=== PATIENT | female | born 1975 | race Caucasian/White ===

== ENCOUNTER → 2016-11-29 | Outpatient (CLI) | payer OTHER ==
--- NOTE | 2016-11-29 12:33 | DI ---
US PELVIC-TRANSVAGINAL, US PELVIC COMPLETE (NON OB),11/29/2016 7:11 AM: Clinical History: Polycystic ovarian syndrome. Previous Exam: None at this facility. Findings: Multiple transabdominal and endovaginal grayscale and color Doppler sonographic images are obtained t hrough the pelvis, and demonstrate a uterus measuring 7.9 x 3.8 x 4.9 cm. The right ovary measures 4.2 x 2.6 x 3.4 cm. The left ovary measures 3.8 x 2.5 x 2.3 cm. There is a simple cyst noted within the right ovary which is within normal limits for a premenopausal female. There is normal venous and arterial ovarian Doppler flow. A few nabothian cysts were noted. Impression: No evidence of polycystic ovarian syndrome.
== END ==
LOC: US 07:05
PROVIDERS: ATTEND Obstetrics & Gynecology
DX: N97.0 Female infertility associated with anovulation (principal)
CPT/HCPCS: 36415; 76830; 76856; 82627; 82951; 83498; 84403

== ENCOUNTER 2017-02-19 06:01 | Emergency (ER) | payer OTHER ==
[2017-02-19] MEDS ORDERED: KETOROLAC 15 MG/1 ML VIAL IVP ONE (06:14)
[2017-02-19] MEDS ORDERED: NORMAL SALINE 10 ML SYRINGE FLUSH IVP PRN (06:14)
[2017-02-19] MEDS ORDERED: ASPIRIN 81 MG (BABY) CHEWABLE TABLET PO ONE (06:14)
--- NOTE | 2017-02-19 06:18 | EKG ---
[address] [address] Measurements Intervals [place] Rate: 70 P: 37 [place]: 153 QRS: -16 QRSD: 99 T: -1 QT: 373 QTc: 394 Interpretive Statements SINUS RHYTHM WITH SINUS ARRHYTHMIA No previous ECG available for comparison Electronically Signed On 02-22-17 16:23:19 MDT by Billy Kay [email or web address]
[2017-02-19 06:21] VITALS: RESP 16; TEMP 96.2
--- NOTE | 2017-02-19 06:25 | PDOC ---
Chest Pain HPI - General Chief Complaint: Chest Pain Stated Complaint: CHEST PAIN Date Seen by Provider: 02/19/17 Time Seen by Provider: 06:05 Source: Patient Exam Limitations: POSITIVE: No limitations Treatment Prior to Arrival: REPORTS: None Nurse's Notes Reviewed & Considered: Yes - History of Present Illness Initial Comments: The patient is a 41-year-old female who presents to the emergency department with left upper chest pain. She states that she had onset of an achy pain in her left upper chest on of this week. This is progressively intensified. The pain seems worse with any movement and with pressure in the area on her chest. At times she also reports that it is difficult to take a breath secondary to the pain. She denies any recent illness or injury. She thought at first that she just slept wrong. She denies any pain or swelling in her legs. She reports a history of polycystic ovary disease and migraines. She is otherwise healthy. She is currently undergoing infertility treatment. She denies history of hypertension, hyperlipidemia, diabetes or smoking. She does have family history of heart problems. She does not take any form of estrogen and denies history of blood clots. - Patient Home Medications Home Medications: Home Medications Metformin HCl [Metformin Hcl Er] 2 tab PO BID #120 tab 07/26/16 Acetaminophen-Cod #3 Tablet [Tylenol with Codeine #3 Tablet] 1 tab PO PRN Ibuprofen [Motrin] 800 mg PO PRN 02/19/17 Naproxen [Naprosyn] 500 mg PO Q12H PRN #20 tab 02/19/17 oxyCODONE/APAP 5/325 Tab [Percocet 5/325 Tab] 1 - 2 tab PO Q6H PRN #15 tab - Patient Allergies Allergies/Adverse Reactions: Allergies Allergy/AdvReac Type Severity Reaction Status Date / Time No Known Allergies Allergy Verified 02/19/17 06:07 Past Medical History - heen HEENT History: Denies History Cardiovascular History: Denies History Respiratory History: Denies History Gastrointestinal History: Denies History Genitourinary History: Denies History Endocrine History: Other (please comment) Additional Endocrine History: PCOS Musculoskeletal History: Denies History Prosthesis or Implant: No Neurological History: Denies History Blood Disorders: Denies History Psychiatric History: Denies History History of Sexually Transmitted Diseases: No Cancer History: Denies History History of MDRO: No History of Other Communicable Diseases: No Alcohol Use: None Substance Use Type: None Previous Surgical History: No Anesthesia Reactions: No Malignant Hyperthermia: No Significant Family History: No pertinent family hx Additional Family History: UNKNOWN Past Medical History Reviewed: Reviewed - No Changes ROS - Limitations ROS Limitations: No Limitations Constitution: DENIES: Chills, Fever Cardiovascular: REPORTS: Chest Pain. DENIES: Heart Racing, Heart Palpitations, Blood Pressure Problem, Edema Respiratory: REPORTS: Hurts To Breathe, Shortness Of Breath (Only because of the pain). DENIES: Cough Non Productive, Cough Productive Neurological: REPORTS: Denies Neuro Symptoms Gastrointestinal: REPORTS: Denies GI Symptoms Musculoskeletal: REPORTS: Denies MS Symptoms Eyes: REPORTS: Denies Symptoms ENT: REPORTS: Denies Symptoms Skin: DENIES: Rash Chest Pain PE - General Appearance General Appearance: REPORTS: Alert, Cooperative, No Acute Distress - HEENT HEENT: POSITIVE: Head Inspection Nml, Eyes Inspection Nml, Ears Inspection Nml, Pharynx Inspect. Nml - Respiratory Respiratory: REPORTS: No Respiratory Distress, Breath Sounds Normal, Other (She does have tenderness in the left anterior upper chest wall, there is no visible rash or swelling in this region) - Cardiovascular Cardiovascular: REPORTS: Regular Rate and Rhythm, Heart Sounds Normal Peripheral Pulses: Radial (R): 2+, Radial (L): 2+ - Abdomen Abdomen: Soft: (All Quadrants), Denies Tenderness: (All Quadrants), No Distention: (All Quadrants) - Skin Skin: REPORTS: Intact, No Rash - Extremities Extremity: Normal ROM: (All Extremities), Normal Inspection: (All Extremities) - Neurological / Psychological Neurological: POSITIVE: Oriented X3, Motor Normal, Sensation Normal Chest Pain Progress - Results Reviewed by me Xrays/CTs/US Reviewed by me: Yes Radiology Findings: Chest x-ray shows normal heart size and normal lung kovacs, no obvious rib fracture Lab Results Reviewed: Yes Lab Results:: Laboratory Results 02/19/17 Range/Units 06:26 WBC 8.16 (4.8-10.8) 10^3/uL RBC 4.74 (4.20-5.40) 10^6/uL Hgb 13.6 (12.0-16.0) g/dL Hct 41.2 (37.0-47.0) % MCV 86.9 (81-99) FL MCH 28.7 (27-31) PG MCHC 33.0 (33-37) g/dL RDW Std Deviation 43.9 (39-50) fL RDW Coeff of Mariama 14.0 (11.5-14.5) % Plt Count 275 (140-350) 10*3/uL MPV 10.8 (7.4-12.2) FL Immature Gran % (Auto) 0.2 (0-5) % Neut % (Auto) 71.2 (50-80) % Lymph % (Auto) 19.4 (10-50) % [place] % (Auto) 6.6 (5-15) % Eos % (Auto) 2.2 (0-8) % Baso % (Auto) 0.4 (0-1) % Immature Gran # (Auto) 0.02 10*3/UL Neut # (Auto) 5.81 10*3/UL Lymph # (Auto) 1.58 10*3/uL [place] # (Auto) 0.54 (0.3-0.8) 10*3/UL Eos # (Auto) 0.18 10*3/UL Baso # (Auto) 0.03 10*3/UL WBC Morphology Comment Normal morphology (NORM) Plt Morphology Comment Normal morphology (NORM) RBC Morph Comment Normal morphology (NORM) D-Dimer 0.28 (0.00-0.59) mg/L Sodium 142 (135-145) meq/L Potassium 3.9 (3.8-5.2) meq/L Chloride 108 (98-112) meq/L Carbon Dioxide 21 L (23-33) meq/L Anion Gap 13 (5-20) BUN 16 (7-22) mg/dL Creatinine 0.7 (0.50-1.20) mg/dL Estimated GFR > 60 (>60 ml/min/1.73m(2)) BUN/Creatinine Ratio 22.85 H (6-20) Glucose 86 (78-110) mg/dL Calculated Osmolality 293.0 H (267-292) mOsm/kg Calcium 8.6 L (8.7-10.7) mg/dL Magnesium 2.1 (1.6-2.4) mg/dL Total Bilirubin 1.3 H (0.3-1.2) mg/dL AST 26 (8-39) IU/L ALT 37 (9-52) IU/L Alkaline Phosphatase 61 (38-126) IU/L CK-MB (CK-2) 0.42 (0.00-5.00) NG/ML Troponin I < 0.012 (< 0.040) ng/mL C-Reactive Protein < 0.5 (0.0-0.9) mg/dL Total Protein 6.8 (6.1-8.0) g/dL Albumin 3.8 (3.5-4.8) g/dL Globulin 3.0 (2.50-4.10) g/dL Albumin/Globulin Ratio 1.20 L (1.3-2.0) mg/g Serum HCG, Qual Negative EKG Interpreted/Reviewed By Me:: Yes EKG Interpretation:: POSITIVE: Normal Sinus Rhythm, Normal Rate, Normal Intervals, Normal [place], Normal QRS, Normal ST/T - Patient's Progress MDM / ED Course: The patient's initial EKG shows normal sinus rhythm with no acute ST segment or T-wave changes. She did receive aspirin per chest pain protocol as well as Toradol 15 mg IV as clinically on presentation her pain seem most likely to be musculoskeletal. She had only very minimal pain relief. Her lab work is all essentially unremarkable and her chest x-ray is normal. She was given Percocet 5/325 2 by mouth for pain. Results were discussed. Her pain is most likely is musculoskeletal in origin. She will be discharged home and was prescribed naproxen 500 mg twice a day as needed for pain as well as Percocet as needed for pain. She is advised return to the emergency room if she develops increased pain, any worsening or change in symptoms. She is advised follow-up with her primary care provider in 3-5 days. - Consult Counseled: POSITIVE: Patient, RE: Lab Results, RE: Radiology Results, RE: DX, RE : Need for F/U Patient Care Time - Estimated PCT Patient Care Time (In Minutes): 25 Vital Signs - Recent Vital Signs Vital Signs: Vital Signs (Last 8 hours) Temp Pulse Resp BP Pulse Ox 02/19/17 06:12 96.2 F L 71 16 142/99 97 - VS Reviewed Vital Signs Reviewed: Yes Discharge Clinical Impression: Chest wall pain Discharge Disposition: Discharged to Home Condition: Good Prescriptions / Orders: Naproxen [Naprosyn] 500 mg PO Q12H PRN #20 tab PRN Reason: Pain oxyCODONE/APAP 5/325 Tab [Percocet 5/325 Tab] 1 - 2 tab PO Q6H PRN #15 tab PRN Reason: Pain Patient Instructions Given at Discharge: Chest Wall Pain (ED) Additional Instructions: The pain you are experiencing in the left upper chest is likely musculoskeletal pain from the chest wall. The EKG on your heart was normal. Your blood work was all normal with no evidence of blood clot, heart attack or infection. The chest x-ray also looked normal. Recommend naproxen 500 mg twice a day with food as an anti-inflammatory and for pain. In addition your been prescribed Percocet 5/325 which she can take one or 2 every 6 hours as needed for pain. Return to the emergency room if increased pain, any worsening or change in symptoms. Recommend follow-up with primary care in 3-5 days. Follow Up With: ARUN HOFFMAN [Primary Care Provider] -
[2017-02-19] MEDS ORDERED: Sodium Chloride 0.9% 1,000 ML PRIMARY IV ONE (06:26)
[2017-02-19 06:29] LABS: BASOPHILS # (AUTO) 0.03 10*3/UL; BASOPHILS % (AUTO) 0.4 % (0-1); EOSINOPHILS # (AUTO) 0.18 10*3/UL; EOSINOPHILS % (AUTO) 2.2 % (0-8); HEMATOCRIT 41.2 % (37.0-47.0); HEMOGLOBIN 13.6 g/dL (12.0-16.0); LYMPHOCYTES # (AUTO) 1.58 10*3/uL; MEAN CORPUSCULAR HEMOGLOBIN 28.7 PG (27-31); MEAN CORPUSCULAR VOLUME 86.9 FL (81-99); MEAN PLATELET VOLUME 10.8 FL (7.4-12.2); MONOCYTES # (AUTO) 0.54 10*3/UL (0.3-0.8); MONOCYTES % (AUTO) 6.6 % (5-15); NEUTROPHILS # (AUTO) 5.81 10*3/UL; NEUTROPHILS % (AUTO) 71.2 % (50-80); PLATELET MORPHOLOGY COMMENT NORMAL MORPHOLOGY (NORM); RBC MORPHOLOGY COMMENT NORMAL MORPHOLOGY (NORM); RED BLOOD COUNT 4.74 10^6/uL (4.20-5.40); WBC MORPHOLOGY COMMENT NORMAL MORPHOLOGY (NORM)
[2017-02-19 06:40] LABS: BLOOD UREA NITROGEN 16 mg/dL (7-22); BUN/CREATININE RATIO 22.85 (6-20); CALCIUM 8.6 mg/dL (8.7-10.7); EST GLOMERULAR FILTRATION > 60 (>60 ml/min/1.73m(2)); MAGNESIUM 2.1 mg/dL (1.6-2.4); SERUM ALBUMIN 3.8 g/dL (3.5-4.8)
[2017-02-19 06:56] LABS: CREATINE KINASE MB 0.42 NG/ML (0.00-5.00); TROPONIN I < 0.012 ng/mL (< 0.040)
[2017-02-19] MEDS ORDERED: oxyCODONE-ACETAMINOPHEN 5-325 TAB PO ONE (07:19)
--- NOTE | 2017-02-19 12:18 | DI ---
AP CHEST X-RAY, 02/19/2017 5:14 AM : Clinical History: Chest pain. Previous Exam: 12/30/2014. There is no acute soft tissue or bony abnormality. Heart size is normal. Lungs are clear. Mediastinal structures are normal. There are no pulmonary nodules. Reading: Normal chest x-ray. There has been no interval change.
[2017-02-19] MEDS ORDERED: Sodium Chloride 0.9% 1,000 ML ONE (14:09)
== END 2017-02-19 07:32 | disposition home or self-care (01) ==
LOC: ER 06:01
DX: R07.89 Other chest pain (principal); R06.00 Dyspnea, unspecified; E28.2 Polycystic ovarian syndrome
CPT/HCPCS: 36415; 71010; 80053; 82553; 83735; 84484; 84703; 85025; 85379; 86140; 93005; 93010; 96374; 99284; J1885; J7030

== ENCOUNTER 2018-07-31 03:01 | Inpatient (IN) ==
[2018-07-31] MEDS ORDERED: diphenhydrAMINE 50 MG/1 ML VIAL IVP PRN ×2 (03:37→23:50)
[2018-07-31] MEDS ORDERED: LIDOCAINE HCL 2 % 10 ML JELLY URO-JECT TOPICAL PRN ×2 (03:37→23:50)
[2018-07-31] MEDS ORDERED: Metoclopramide Inj 10 MG/2 ML VIAL IV PRN (03:37)
[2018-07-31] MEDS ORDERED: OXYTOCIN 10 UNIT/1 ML IM PRN (03:37)
[2018-07-31] MEDS ORDERED: Carboprost Inj 250 MCG/ML AMP IM PRN (03:37)
[2018-07-31] MEDS ORDERED: CITRIC ACID/SODIUM CITRATE 30 ML CUP PO PRN (03:37)
[2018-07-31] MEDS ORDERED: Lidocaine 1% 10 MG/ML - 20 ML VIAL SUBCUT PRN (03:37)
[2018-07-31] MEDS ORDERED: FAMOTIDINE 20 MG/2 ML VIAL IVP PRN ×2 (03:37)
[2018-07-31] MEDS ORDERED: MISOPROSTOL 200 MCG TABLET RECTAL PRN (03:37)
[2018-07-31] MEDS ORDERED: CefOXitin Inj 2 GM in Sodium Chloride 0.9% 100 ML IV PRN (03:37)
[2018-07-31] MEDS ORDERED: NALOXONE 0.4 MG/1 ML VIAL IVP PRN (03:37)
[2018-07-31] MEDS ORDERED: LIDOCAINE W/ SODIUM BICARB 0.5 ML SYR SUBD PRN ×2 (03:37→22:19)
[2018-07-31] MEDS ORDERED: CALCIUM CARBONATE 500 MG (TUMS) CHEWABLE TABLET PO PRN ×2 (03:37→23:50)
[2018-07-31] MEDS ORDERED: Nalbuphine Inj 20 MG/ML Ampule IVP PRN ×2 (03:37→23:50)
[2018-07-31] MEDS ORDERED: METHYLERGONOVINE MALEATE 0.2 MG/1 ML VIAL IM PRN (03:37)
[2018-07-31] MEDS ORDERED: Phenylephrine Inj 50 MCG in Normal Saline Flush 0.5 ML IVP PRN (03:37)
[2018-07-31] MEDS ORDERED: Zolpidem Tab 5 MG TAB PO PRN (03:37)
[2018-07-31] MEDS ORDERED: TERBUTALINE SULFATE 1 MG/1 ML SDV SUBCUT PRN (03:37)
[2018-07-31] MEDS ORDERED: ONDANSETRON 4 MG/2 ML VIAL IVP PRN ×3 (03:37→23:50)
[2018-07-31] MEDS ORDERED: Naloxone Inj 0.01 MG in Normal Saline Flush 1 ML IVP PRN (03:37)
[2018-07-31] MEDS ORDERED: Misoprostol Tab 100 MCG TAB VAGINAL PRN (03:37)
[2018-07-31] MEDS ORDERED: Oxytocin 20 Units + LR 20 UNIT/1,000 ML BAG IV SCH ×3 (03:45→23:50)
[2018-07-31] MEDS: BUTORPHANOL TARTRATE 2 MG/1 ML VIAL IVP PRN ×3 (04:31→04:50)
[2018-07-31 04:41] LABS: Hematocrit [HCT] 40.6 % (37.0-47.0); Hemoglobin [HGB] 13.6 g/dL (12.0-16.0); MEAN CORPUSCULAR HGB CONC 33.5 g/dL (33-37); MEAN CORPUSCULAR VOLUME 86.6 FL (81-99); MEAN PLATELET VOLUME 12.9 FL (7.4-12.2); RED BLOOD COUNT 4.69 10^6/uL (4.20-5.40)
[2018-07-31 05:03] LABS: BLOOD UREA NITROGEN 9 mg/dL (7-22); SERUM ALBUMIN 3.3 g/dL (3.5-4.8); Uric Acid 5.5 mg/dl (2.5-7.0)
[2018-07-31] MEDS: Lactated Ringers-OB Dept 1,000 ML PRIMARY IV SCH ×4 (05:03→14:39)
[2018-07-31] MEDS ORDERED: BUPivacaine Inj 0.25% PF - 10ml vial ONE ×4 (05:46→12:43)
[2018-07-31] MEDS ORDERED: LIDOCAINE W/ SODIUM BICARB 0.5 ML SYR ONE (05:46)
[2018-07-31] MEDS ORDERED: LIDOCAINE MPF 2% - 5 ML (20 MG/1 ML) ONE ×3 (05:47→12:43)
[2018-07-31] MEDS ORDERED: Fent/Bupiv 2mcg/0.0625% Epid 250 ML ONE (06:15)
--- NOTE | 2018-07-31 07:27 | CRNA.PROCE ---
Central Neuraxis Block Placemt - - Safety Measures: Time Out Taken, Site Verified - - Type of Block: Epidural Reason for Block: Analgesia Moniters Used During Block: SPO2, NIBP Positioning: Sitting Skin Prep Used: ChloroPrep Draped: Yes Skin Infiltration - Enter Amount Used in Comment Field: 1% Xylocaine (mL): Yes ( wheal) Introducer User: 18 Gauge Hustead Local Anesthetic - Enter Amount Used in Comment Field: 5.0 % Xylocaine with Dextrose (ml): Yes (5ml test dose neg) Number of Centimeters Catheter Threaded: 4 Bioclusive Dressing Applied: Yes Anesthesia Time - Other Weight: 132.449 kg Height: 5 ft 7 in Body Mass Index (BMI): 45.7
--- NOTE | 2018-07-31 07:28 | CRNA.PROGR ---
Anesthesia Time - Procedure/Recovery Time Start Date: 07/31/18 End Date: 07/31/18 Anesthesia : Time In: 06:10 Anesthesia : Time Out: 21:00 Anesthesia : Total Time: 890 - Total Anesthesia Time Total Anesthesia Time (minutes): 890 - Other Weight: 132.449 kg Height: 5 ft 7 in Body Mass Index (BMI): 45.7 Physical Status: P2 Anesthesia Type: Epidural Obstetrics: Planned vaginal delivery w/ neuraxial labor anesthesia/analog
[2018-07-31] MEDS ORDERED: fentaNYL 2 MCG/BUPIVACAINE 0.0625%/NS 0.9% 250 ML BAG EPIDURAL SCH (07:30)
[2018-07-31] MEDS: ACETAMINOPHEN 500 MG TABLET PO PRN ×2 (07:57→17:35)
--- NOTE | 2018-07-31 08:02 | OB.PROGRES ---
Date of Service: 07/31/18 Interval History: The patient is a 42-year-old at 37 weeks gestation today who presented this morning by ambulance after noticing some pain and discomfort last evening and then around midnight figuring out that most likely her pain was related to contractions. At that time, her contractions were every 10 minutes and then her pain increased. No bleeding. No gush of fluid. Positive movement. The patient was going to come to labor and delivery but noted that they had no gas in their vehicle so they called the ambulance to be brought to labor and delivery. In labor and delivery, the patient's blood pressures were elevated in the 140s to 150/90's with the highest blood pressure of 151/97. Patient also developed a headache this morning but has a history of migraine headaches. The patient states that her headache is similar to her migraine headaches. The patient had an dural placed secondary to the pain that she was having. This helped her pain initially and the patient was able to sleep but now the patient is having some more pain so anesthesia will about a weight her. The patient has essentially had an uncomplicated , although followed closely, until the last week when she developed high her blood pressures in the 140s over 90s occasionally and a 24-hour urine for total protein was elevated. The patient does have morbid obesity with a BMI greater than 50. Therefore, the patient was diagnosed with preeclampsia without signs or symptoms of severe preeclampsia. The patient was scheduled for an induction of labor with cervical ripening for this morning. The patient has had growth scans and antepartum testing. Last growth scan was 2861 g or 69th percentile with the placenta fundal and to the right side on 07/20/2018. Last MIGUEL was normal at 13. Antepartum testing has been reactive. Glucola's have been normal. Group B strep was negative. The patient did have bleeding in the first trimester. Please see below for history. Patient has polycystic ovarian syndrome and was prescribed Clomid for ovulation induction after discussing the risks, benefits, alternatives and indication of a high-risk with advanced maternal age and morbid obesity. The patient is a 42-year-old LMP 11/05/2017 who has a history of primary infertility and has 4 adopted children who desired conception. Patient was treated with Clomid with the Clomid challenge test and conceived. An ultrasound on 02 January showed that she was 6-6/7 weeks so today she would be 8 and one sevenths weeks. The patient had some bleeding a week plus ago and went to the emergency room and there was cardiac activity. The bleeding stopped within the patient had dark blood per vagina last night. No cramping. Occasional nausea. No emesis. No fever or chills. No abdominal pain. Past medical history significant for polycystic ovarian syndrome and primary infertility, migraine headaches. Surgical history noncontributory Patient has no known drug allergies No tobacco, rare alcohol, no drugs. No alcohol since she has conceived. The patient has been taking multivitamin daily. Other current medications are micronized progesterone 200 mg by mouth twice a day and a baby aspirin-81 mg-by mouth daily Menarche age 11, no STI history, remote history of abnormal Pap with colposcopies but no leak or cold knife cone. Last Pap smear was February 2016 and was negative with negative HPV. Family history of ovarian cyst and fibroid uterus and her mother and sister. No ovarian cancer, no endometrial cancer, no colon cancer, no lung cancer hx The patient is a 42-year-old last menstrual period 09/30/2017 using nothing for contraception who presents today for primary infertility. Patient saw me in October 2016 but then has not seen me since that time secondary to a lot of life issues in her family that took precedence. The patient has 4 adopted children. She is but currently with another gentleman and they desire to conceive. Her first had azoospermia and therefore the patient never worried about conception. The patient has been having unprotected intercourse for 2 years and has not conceived. The patient states that her menses have continued to be more regular. Her LMP was 30 September and she suspects that her menses will occur any day now. She usually has her menses once a month. The patient was taking metformin 1000 mg by mouth twice a day but ran out of this medication in August 2017 and has not gotten it refill. The patient has a history of polycystic ovarian syndrome with hirsutism and therefore has had possible glucose intolerance and therefore was placed on the metformin. The patient has a history of menarche age 11 with regular cycles initially but then age 16-19 her cycles became irregular. The patient has also had a history of being overweight and obesity. The patient lost about 60 pounds 2-3 years ago and her cycles again became more regular. Over the past year the patient has gained 30 pounds secondary to the significant life psychosocial issues that have occurred but the patient is interested in conceiving but also losing weight currently. The patient was using LH surge kits until June 2017 occasionally and did have LH surges according to the patient. The patient does have a history of a normal FSH of 5.7 last year. The patient does have a history of abnormal Pap smears in the with colposcopies and a few biopsies. No surgeries to her cervix. Patient's Pap smear was last completed in February 2016 and it was normal with negative HPV. Patient was also negative for chlamydia and gonorrhea at that time. The patient did have a normal TSH and FSH and prolactin in September 2016. FSH was 5.7. The patient was taking metformin at that time with thousand milligrams by mouth twice a day and her glucose was 80. Creatinine 0.7 and AST and ALT were normal. The patient's H&H was 14 and 42. Platelets normal at 279,000. The patient does have hirsutism and she has to shave her chin no history of significant acne. The patient's significant other has fathered a child and has a 2-year-old with another woman in the area. Past medical history significant for polycystic ovarian syndrome, migraine headaches. Now she only gets headache a couple times a year. Past surgical history noncontributory No known drug allergies No tobacco, rare alcohol, no drugs. Menarche age 11, no STI history positive for remote history of abnormal Pap with colposcopies but no LEEP or cold knife cone. Family history of ovarian cysts and fibroid uterus and her mother and sister. No ovarian cancer history. No endometrial cancer, colon cancer, lung cancer. The patient does take a multivitamin daily. Objective - Cervical Exam Cervical Exam: per nurse exam. 4 to 5/90/-2 cephalic [place]: Contractions every 3 minutes Heart Rate Interpretation Category: Category II (Occasional variable decelerations) - Labs CBC and BMP: 07/31/18 04:05 07/31/18 04:05 - Vital Signs Last Taken Vital Signs: Vital Signs - Last Taken Temperature 98.2 F 07/31/18 03:43 Pulse Rate 93 07/31/18 07:00 Respiratory Rate 20 07/31/18 07:00 Blood Pressure 127/63 07/31/18 07:00 Pulse Ox 96 07/31/18 07:07 - Additional Details Additional Details: Nontoxic-appearing Abdomen is soft, orbitally obese, appropriately tender with contractions even though patient has an epidural 1+ reflexes bilaterally patellar No clonus. Assessment and Plan - Assessment / Plan Additional Assessment/Plan Details: Assessment: IUP 37 weeks' gestation with preeclampsia without signs or symptoms of severe preeclampsia except for the fact that the patient does have a headache which the patient attributes to her migraine headache history. The patient's blood pressures have not been in the severe range. If the patient's headache does not improve with Tylenol, the patient may have symptoms of severe preeclampsia. The patient presented this morning by ambulance for contractions. The contractions of been painful and an epidural was placed. Pain control is still an issue. Occasional variable decelerations but return to baseline. Otherwise reassuring. The patient's white count is 20,000. The patient currently does not have symptoms or signs of infection except for pain with contractions. The baby is not tachycardic as if the patient had [place]. The patient has hemoconcentration of H&H the platelets are normal. Liver function tests are normal. Creatinine is normal. LDH and uric acid are normal. The patient has morbid obesity with a large pannus. Plan: I will check patient once anesthesia has evaluated patient for the increased pain with contraction and doses her epidural I have discussed with the patient that the patient is at increased risk secondary to advanced maternal age for preeclampsia. I have discussed that magnesium sulfate will be administered if the patient's headache does not resolve. The patient is not hyperreflexic. I discussed with the patient that the patient is at increased risk secondary to her morbid obesity for poor wound healing if the patient were to have a section. Also a shoulder dystocia is a possibility. My preference is for the patient to have a vaginal delivery secondary to the patient's BMI of greater than 50 and the increased risk for wound healing but also even possibly an abdominal dystocia with a section secondary to the patient's morbid obesity. The patient and I have discussed this several times. If the patient's cervix is dilating, I will consider AROM with IUPC placement. I have discussed this with the patient and the nurses discussed this with the patient. Currently, heart tones are picking up well and so scalp electrode currently would not be placed but may need to be placed.
[2018-07-31] MEDS ORDERED: Sodium Chloride 0.9% vial 10 ML ONE ×3 (08:12→18:35)
--- NOTE | 2018-07-31 08:20 | CRNA.PROGR ---
Anesthesia Note - Progress Notes Anesthesia Progress Note: 0815 10ml bolus to epidural of 1/8% marcaine. Epidural pump settings changed to 12ml/hr, 10ml bolus q 15 min
--- NOTE | 2018-07-31 08:43 | OB.PROGRES ---
Interval History: The patient is uncomfortable with contractions. The patient states that her headache has essentially resolved. Objective - Cervical Exam Cervical Exam: /-2. AROM with clear fluid [place]: Some couplets present. Heart Rate Interpretation Category: Category I (Currently category 1 on the monitor) - Labs CBC and BMP: 07/31/18 04:05 07/31/18 04:05 - Vital Signs Last Taken Vital Signs: Vital Signs - Last Taken Temperature 98.2 F 07/31/18 03:43 Pulse Rate 107 H 07/31/18 08:13 Respiratory Rate 20 07/31/18 08:13 Blood Pressure 139/82 07/31/18 08:13 Pulse Ox 98 07/31/18 08:13 Assessment and Plan - Assessment / Plan Additional Assessment/Plan Details: Assessment: IUP 37 weeks with preeclampsia without signs or symptoms of severe preeclampsia. Patient's headache is improved and almost completely resolved according to the patient. AROM with clear fluid and fluid was not foul smelling. I note this secondary to the white count of 20,000. Group B strep negative Advanced maternal age Morbid obesity Plan: Continue to follow patient closely. Currently, contractions are picking up with the toco. I may need to place an IUPC if contractions don't continuous pickling line pickler well or if there is no cervical change. No magnesium sulfate currently since the patient states her headache resolved.
--- NOTE | 2018-07-31 09:05 | OB.PROGRES ---
Interval History: The patient is uncomfortable with contractions but breathing through them. Objective - Cervical Exam Cervical Exam: Deferred currently Speed: Contractions every 2-3-4 minutes Heart Rate: Some accelerations. No significant variable decelerations. Subtle early decelerations Heart Rate Interpretation Category: Category II - Labs CBC and BMP: 07/31/18 04:05 07/31/18 04:05 - Vital Signs Last Taken Vital Signs: Vital Signs - Last Taken Temperature 98.2 F 07/31/18 03:43 Pulse Rate 107 H 07/31/18 08:13 Respiratory Rate 20 07/31/18 08:13 Blood Pressure 139/82 07/31/18 08:13 Pulse Ox 98 07/31/18 08:13 Assessment and Plan - Assessment / Plan Additional Assessment/Plan Details: IUP 37 weeks with preeclampsia without signs or symptoms of severe preeclampsia. Plan: I did discuss the risks, benefits, alternatives and indications for a section. Both maternal and . The risks, but not limited to, infection, bleeding, pain, damage to bowel, bladder, nerve, vessel, nicking the baby, blood clots to legs or lungs, hemorrhage necessitating blood transfusion, hysterectomy, wound breakdown or wound infection or wound seroma requiring wound VAC or opening the wound and packing the wound. Serious infection requiring IV antibiotics and possible transfer to tertiary care center for severe infection such as necrotizing fasciitis and the low risk of were discussed with the patient. Patient expressed understanding. I explained to the patient that we are hoping that the patient will have a vaginal delivery. Patient expressed understanding.
[2018-07-31] MEDS: ePHEDrine Inj 5 MG in Normal Saline Flush 1 ML IVP PRN ×3 (10:10→10:24)
--- NOTE | 2018-07-31 10:33 | OB.PROGRES ---
Interval History: The patient is comfortable now that anesthesia dosed her epidural again. The patient states that she is not having pain with contractions. Objective - Cervical Exam Cervical Exam: 5/c/-2 [place]: Contractions every 3 or so minutes Heart Rate Interpretation Category: Category II (Occasional early. Some accelerations. No late decelerations.) - Labs CBC and BMP: 07/31/18 04:05 07/31/18 04:05 - Vital Signs Last Taken Vital Signs: Vital Signs - Last Taken Temperature 98.6 F 07/31/18 08:45 Pulse Rate 100 07/31/18 08:45 Respiratory Rate 20 07/31/18 08:45 Blood Pressure 140/80 07/31/18 08:45 Pulse Ox 98 07/31/18 08:45 Assessment and Plan - Assessment / Plan Additional Assessment/Plan Details: Assessment: IUP 37 weeks with preeclampsia without signs or symptoms of severe preeclampsia. Advanced maternal age Morbid obesity GBS negative The patient's blood pressure dropped somewhat with the epidural boluses. Last blood pressure was 109/44 The patient's cervix has effaced to completely effaced. Plan: Will check cervix and one-hour. If there is not a change, IUPC will be placed. Continue to observe blood pressures. Continue to observe the patient closely.
[2018-07-31] MEDS ORDERED: ePHEDrine Inj 50 MG/ML AMP ONE (10:54)
--- NOTE | 2018-07-31 11:44 | OB.PROGRES ---
Interval History: The patient is still comfortable. Objective - Cervical Exam Cervical Exam: 5/c/-2 cephalic. IUPC placed around 5:00 on the clock. The IUPC was introduced easily after a contraction resolved. Betadine was placed on the patient's perineum prior to placement of the IUPC. The IUPC will be evaluated. - Labs CBC and BMP: 07/31/18 04:05 07/31/18 04:05 - Vital Signs Last Taken Vital Signs: Vital Signs - Last Taken Temperature 98.6 F 07/31/18 08:45 Pulse Rate 98 07/31/18 10:39 Respiratory Rate 20 07/31/18 10:39 Blood Pressure 115/49 07/31/18 10:39 Pulse Ox 97 07/31/18 11:08 Assessment and Plan - Assessment / Plan Additional Assessment/Plan Details: Assessment: IUP 37 weeks with preeclampsia without signs or symptoms of severe preeclampsia. Patient more comfortable now. Cervix is not changed. There are some couplets with external monitor. Baby possibly OP. Plan: IUPC placed. Was introduced actually quite easily after a contraction results. No bleeding. Placenta is fundal and right side. IUPC will be evaluated to determine if it is functioning. If it is not, I will replace it. If IUPC is functioning, evaluation for 200 [place] units. If there are not 200 [place] units, Pitocin augmentation will be added.
--- NOTE | 2018-07-31 12:15 | OB.PROGRES ---
Objective - Labs CBC and BMP: 07/31/18 04:05 07/31/18 04:05 - Vital Signs Last Taken Vital Signs: Vital Signs - Last Taken Temperature 98.6 F 07/31/18 08:45 Pulse Rate 88 07/31/18 11:00 Respiratory Rate 20 07/31/18 10:39 Blood Pressure 115/67 07/31/18 11:00 Pulse Ox 97 07/31/18 11:08 Assessment and Plan - Assessment / Plan Additional Assessment/Plan Details: [place] units were 130. Pitocin augmentation starting at 2 milliunits was prescribed. We will continue to follow closely.
--- NOTE | 2018-07-31 14:25 | OB.PROGRES ---
Interval History: The patient states that she is comfortable. She has slept intermittently. Objective - Cervical Exam Cervical Exam: 6/c/-2 [place]: 165 [place] units currently on 6 milliunits of Pitocin Heart Rate Interpretation Category: Category I - Labs CBC and BMP: 07/31/18 04:05 07/31/18 04:05 - Vital Signs Last Taken Vital Signs: Vital Signs - Last Taken Temperature 98.6 F 07/31/18 08:45 Pulse Rate 88 07/31/18 14:00 Respiratory Rate 18 07/31/18 14:00 Blood Pressure 127/70 07/31/18 14:00 Pulse Ox 93 07/31/18 14:00 Assessment and Plan - Assessment / Plan Additional Assessment/Plan Details: Assessment: IUP 37 weeks with minimal change in cervix but there was slight change from my last cervical exam. The head still is at -2 station. Pitocin currently on 6 milliunits. 165 [place] units at last check. Group B strep negative Preeclampsia without signs or symptoms of severe preeclampsia. Headache resolved. Blood pressures okay. Plan: Continue Pitocin Continue to observe for cervical change Observe closely
--- NOTE | 2018-07-31 16:05 | OB.PROGRES ---
Objective - Labs CBC and BMP: 07/31/18 04:05 07/31/18 04:05 - Vital Signs Last Taken Vital Signs: Vital Signs - Last Taken Temperature 98.6 F 07/31/18 08:45 Pulse Rate 114 H 07/31/18 14:51 Respiratory Rate 18 07/31/18 14:51 Blood Pressure 130/64 07/31/18 14:51 Pulse Ox 96 07/31/18 15:59 Assessment and Plan - Assessment / Plan Additional Assessment/Plan Details: Patient was resting. The nurse just checked the patient just before I got to labor and delivery from the office. The nurse states that she is 7-8 cm/c/-2 cephalic. I did not recheck the patient. I will check her in about an hour. [place] units less than 200. 10 milliunits of Pitocin. Will continue to observe.
--- NOTE | 2018-07-31 16:59 | OB.PROGRES ---
Interval History: The patient is comfortable. Actually, the patient is falling asleep often and she is likely did not get much sleep last night. The patient states she is comfortable Objective - Cervical Exam Cervical Exam: 7/C/-2. Could not determine the position of the baby's head Heart Rate Interpretation Category: Category II (Variable decelerations occasionally to 70s to 80s lasting 30 seconds. There have been 3 or 4 of these. There are some accelerations. With checking the cervix, there were some accelerations and then a variable deceleration to the 90s.) - Labs CBC and BMP: 07/31/18 04:05 07/31/18 04:05 - Vital Signs Last Taken Vital Signs: Vital Signs - Last Taken Temperature 98.6 F 07/31/18 08:45 Pulse Rate 99 07/31/18 16:00 Respiratory Rate 18 07/31/18 16:00 Blood Pressure 97/65 07/31/18 16:00 Pulse Ox 96 07/31/18 16:00 Assessment and Plan - Assessment / Plan Additional Assessment/Plan Details: Assessment: IUP 37 weeks with no cervical change in the past hour but also there are variable decelerations present. There was scalp stimulation with checking the patient's cervix and therefore the pH of the baby should be 7.22 or higher. The patient is on 10 milliunits of Pitocin. Plan: Continue to observe closely. Position change of patient to determine if this helps the variable decelerations but also helps the baby descend into the pelvis more and also for cervical change. Continue Pitocin currently but if variables persist, will have to discontinue the Pitocin.
--- NOTE | 2018-07-31 17:53 | OB.PROGRES ---
Interval History: Patient is comfortable but can feel contractions. Has been pushing the epidural PROOF CARRIER button. Objective - Cervical Exam Cervical Exam: Almost 9 cm, cervix mainly on the right side and anteriorly/c/-1 Heart Rate Interpretation Category: Category II (Good scalp stim with cervical exam Occasional variable deceleration on 10 milliunits of Pitocin) - Labs CBC and BMP: 07/31/18 04:05 07/31/18 04:05 - Vital Signs Last Taken Vital Signs: Vital Signs - Last Taken Temperature 99.2 F 07/31/18 17:35 Pulse Rate 83 07/31/18 17:00 Respiratory Rate 18 07/31/18 16:00 Blood Pressure 117/61 07/31/18 17:00 Pulse Ox 96 07/31/18 16:00 Assessment and Plan - Assessment / Plan Additional Assessment/Plan Details: Assessment: IUP 37 weeks with preeclampsia without signs or symptoms of severe preeclampsia. Patient did have a temperature of 99.2 and the heart rate baseline has increased slightly but is not tachycardic There has been cervical change Plan: Continue Pitocin Tylenol 1000 mg by mouth was administered Continue to observe closely. Observe heart rate status but also for cervical change in 1 hour.
--- NOTE | 2018-07-31 18:30 | OB.PROGRES ---
Interval History: The patient is starting to feel her contractions more. They are painful. Objective - Cervical Exam Cervical Exam: Anterior lip/c/-1. I still could not determine the position of the baby's head. [place]: Between 160 and 210 [place] units. Heart Rate Interpretation Category: Category II (Variable decelerations are present occasionally. Positive scalp stimulation.) - Labs CBC and BMP: 07/31/18 04:05 07/31/18 04:05 - Vital Signs Last Taken Vital Signs: Vital Signs - Last Taken Temperature 99.2 F 07/31/18 17:45 Pulse Rate 101 H 07/31/18 17:45 Respiratory Rate 20 07/31/18 17:45 Blood Pressure 152/69 07/31/18 17:45 Pulse Ox 96 07/31/18 17:45 - Additional Details Additional Details: Patient is afebrile. Assessment and Plan - Assessment / Plan Additional Assessment/Plan Details: Assessment: IUP 37 weeks with preeclampsia without signs or symptoms of severe preeclampsia. Secondary to the patient's increased pain, the patient did have a blood pressure of 176/80's but this was with a contraction and with pain and with the patient gripping onto the hand rail. Repeat blood pressure was 143/86. There has been cervical change with the cervix anterior lip. Variable decelerations continue The patient is afebrile Plan: [place] to determine if this will help the baby descend and allow the patient to go on the second stage of labor. I have discussed with the patient still arrest of descent or nonreassuring status for section and indications. I have talked with anesthesia and they will bolus her epidural. Continue very close observation
--- NOTE | 2018-07-31 18:45 | OB.PROGRES ---
Interval History: The patient is uncomfortable and just received her epidural bolus from anesthesia. Objective - Cervical Exam Cervical Exam: I could actually palpate a rim of cervix on the patient's right side. Rim/c/-1 Heart Rate Interpretation Category: Category II (Variable decelerations Positive scalp stimulation when checking the patient's cervix) - Labs CBC and BMP: 07/31/18 04:05 07/31/18 04:05 - Vital Signs Last Taken Vital Signs: Vital Signs - Last Taken Temperature 99.2 F 07/31/18 17:45 Pulse Rate 101 H 07/31/18 17:45 Respiratory Rate 20 07/31/18 17:45 Blood Pressure 152/69 07/31/18 17:45 Pulse Ox 96 07/31/18 17:45 Assessment and Plan - Assessment / Plan Additional Assessment/Plan Details: The patient will be an high Gonzalez's to hopefully allow the cervix to fully dilate. Now that she has received her bolus, we will place the patient in high Gonzalez's. Hopefully, the bolus will help her pain and the cervix will fully dilate and then the patient can start to push. Close observation. The patient is very tired and she did not rest well last night. Additionally, I believe the patient has sleep apnea. The patient does not use a CPAP.
--- NOTE | 2018-07-31 19:34 | OB.PROGRES ---
Interval History: The patient is febrile with her contractions now that she had that epidural bolus again. The patient states that she can feel her contractions a little bit. Objective - Cervical Exam Cervical Exam: Complete/complete/0 [place]: Contractions every 3 to 4 minutes. On 10 milliunits Pitocin Heart Rate Interpretation Category: Category II (Some variable decelerations. Other times there are no variable decelerations. Positive accelerations) - Labs CBC and BMP: 07/31/18 04:05 07/31/18 04:05 - Vital Signs Last Taken Vital Signs: Vital Signs - Last Taken Temperature 99.2 F 07/31/18 17:45 Pulse Rate 110 H 07/31/18 18:44 Respiratory Rate 22 07/31/18 18:44 Blood Pressure 103/47 07/31/18 18:44 Pulse Ox 94 07/31/18 18:44 Assessment and Plan - Assessment / Plan Additional Assessment/Plan Details: Assessment/plan: IUP 37 weeks with cervical change and patient is now complete. We will begin to have the patient push and start the second stage of labor. We will observe closely for head descent. I have discussed shoulder dystocia with the patient. Nurses are also aware of the possibility. Also discussed arrest of descent and nonreassuring status with the patient as indications for a in the second stage of labor. Of course, our goal is a vaginal delivery. Observe closely
[2018-07-31] MEDS: fentaNYL Inj 100 MCG/2 ML VIAL IV PRN ×2 (20:35→20:50)
[2018-07-31] MEDS ORDERED: MIDAZOLAM 5 MG/1 ML ONE (20:58)
[2018-07-31] MEDS ORDERED: fentaNYL Inj 250 MCG/5 ML VIAL ONE (20:58)
[2018-07-31] MEDS ORDERED: PROPOFOL 10 MG/1 ML (200 MG/20 ML) VIAL IV ONE (20:58)
[2018-07-31] MEDS ORDERED: SUCCINYLCHOLINE CHLORIDE 20 MG/1 ML - 10 ML ONE (20:58)
[2018-07-31] MEDS ORDERED: Sodium Chloride 0.9% 100 ML IV ONE (21:11)
[2018-07-31] MEDS ORDERED: ERTAPENEM 1 GM VIAL ONE (21:11)
[2018-07-31] MEDS ORDERED: MISOPROSTOL 200 MCG TABLET ONE (21:27)
[2018-07-31] MEDS ORDERED: OXYTOCIN 10 UNIT/1 ML ONE (21:27)
[2018-07-31] MEDS ORDERED: Lactated Ringers 1,000 ML PRIMARY IV ONE ×2 (21:27→22:05)
[2018-07-31] MEDS ORDERED: fentaNYL Inj 100 MCG/2 ML VIAL IVP PRN (22:19)
[2018-07-31] MEDS ORDERED: HYDROmorphone 2 MG/1 ML IVP PRN (22:19)
--- NOTE | 2018-07-31 22:22 | CRNA.PROGR ---
Anesthesia Recovery Phase I - Post Anesthesia Evaluation Patient's Condition on Arrival in Phase I: Stable Pain Level: 0
--- NOTE | 2018-07-31 22:25 | OB.OP.NOTE ---
Operative Report Surgeon: Claudio Fondant Puff Maker: Irwin Guerrero MD Anesthesia Type: General Anesthesia Provider: Kentrell Helton CRNA Surgery Date: 07/31/18 Preoperative Diagnosis: Status post spontaneous vaginal delivery. Retained placenta after avulsion of umbilical cord. Preeclampsia without signs or symptoms of severe preeclampsia. Morbid obesity with a BMI of greater than 50. hemorrhage secondary to retained placenta. Periurethral laceration. Left labial minora laceration Postoperative Diagnosis: Same Procedure: Exam under anesthesia. Manual extraction of placenta. Repair of periurethral laceration and left labia minora laceration Estimated Blood Loss (mL): 1,300 (for vaginal delivery and retained placenta) Fluids: 1500 of LR in the OR. 700 of saline with Pitocin in the OR. Another 1000 mL of LR in the PACU. 1 g of in ertapenem in the OR IV Complications: The patient had a spontaneous vaginal delivery of a female infant with Apgars 8 and 8. Weight 6 lbs. 15 oz. After about 15 minutes, I had the patient push to attempt to deliver the placenta and the cord easily just tore and completely avulsed with just gentle traction. Therefore, retained placenta after a cord avulsion. hemorrhage secondary to retained placenta. Findings at Surgery: Female with Apgars 8 and 8 Weight 6 lbs. 15 oz. ABG showed a pH of 7.291, PCO2 of 43.3, HCO3 of 20.9, base excess of -6 Retained placenta manually extracted Left labia minora laceration-repaired Periurethral laceration superiorly-repaired Indications for the Procedure: The patient is a 42-year-old G1 now P1 at 37 weeks gestation. The patient was going to undergo induction of labor with cervical ripening the morning of 2017. The reason for induction of labor with cervical ripening was secondary to preeclampsia without signs or symptoms of severe preeclampsia. However, the patient came in by ambulance earlier than her scheduled showed time of 5:00 secondary to regular contractions that were very painful. The patient's significant other's car had ran out of gas and therefore they called the ambulance secondary to the pain that the patient was having and they needed transportation to the hospital. The patient's cervix changed from 1 cm to 3 cm and then to 5 cm over the period of several hours. The patient received an epidural secondary to pain with contractions. Please see my notes from the labor course. The patient slowly progressed as my notes discuss and her cervix was completely dilated and then the patient was able to enter the second stage of labor with pushing. The patient pushed for about 1 hour and had a spontaneous vaginal delivery. There was a true knot that was loose in the umbilical cord that was noted. There was no nuchal cord. The baby delivered in the straight OA presentation. Delayed cord clamping was allow for them the cord was clamped and cut. The umbilical cord appeared quite gelatinous. The baby was on the mother's chest crying very well with a lusty cry. A section of cord was obtained for cord gases and then cord blood was obtained. About 15 minutes after the delivery, I had the patient push minimally to determine if the placenta wouldn't deliver. I applied very gentle traction to the umbilical cord and almost immediately there was a complete avulsion of the umbilical cord. Attempts at manual extraction of the placenta in the delivery room were unsuccessful secondary to extreme patient discomfort but also I could not reach the fundal placenta well. Therefore, I called for the OR crew and for anesthesia so that we could bring the patient to the operating room for manual extraction of the placenta. Description of Procedure: The patient is a 42-year-old G1 now P1 at 37 weeks gestation. The patient was going to undergo induction of labor with cervical ripening the morning of 2017. The reason for induction of labor with cervical ripening was secondary to preeclampsia without signs or symptoms of severe preeclampsia. However, the patient came in by ambulance earlier than her scheduled showed time of 5:00 secondary to regular contractions that were very painful. The patient's significant other's car had ran out of gas and therefore they called the ambulance secondary to the pain that the patient was having and they needed transportation to the hospital. The patient's cervix changed from 1 cm to 3 cm and then to 5 cm over the period of several hours. The patient received an epidural secondary to pain with contractions. Please see my notes from the labor course. The patient slowly progressed as my notes discuss and her cervix was completely dilated and then the patient was able to enter the second stage of labor with pushing. The patient pushed for about 1 hour and had a spontaneous vaginal delivery. There was a true knot that was loose in the umbilical cord that was noted. There was no nuchal cord. The baby delivered in the straight OA presentation. Delayed cord clamping was allow for them the cord was clamped and cut. The umbilical cord appeared quite gelatinous. The baby was on the mother's chest crying very well with a lusty cry. A section of cord was obtained for cord gases and then cord blood was obtained. About 15 minutes after the delivery, I had the patient push minimally to determine if the placenta wouldn't deliver. I applied very gentle traction to the umbilical cord and almost immediately there was a complete avulsion of the umbilical cord. Attempts at manual extraction of the placenta in the delivery room were unsuccessful secondary to extreme patient discomfort but also I could not reach the fundal placenta well. Therefore, I called for the OR crew and for anesthesia so that we could bring the patient to the operating room for manual extraction of the placenta. The patient did receive fentanyl 50 g IV and then another 50 g IV of fentanyl but this did not allow for pain control for manual extraction of the placenta. I did discuss with the patient and her significant other the risk of serious infection, bleeding, retained placenta even after taking her to the operating room necessitating a D&C at a later time, continued hemorrhage, blood transfusion, and the risk of hysterectomy. A consent form was not signed for the manual extraction of the placenta secondary to the need to get the patient to the operating room expediently. However, I did obtain verbal permission from the patient to do the procedure. The patient's significant other also knowledged. The patient was alert and awake but had received the IV fentanyl. The patient was brought to the operating room. The patient was placed on the operating room table and then her legs were placed in the yellowfin stirrups. When the patient was placed in the yellowfin stirrups there was about 400 to 500 mL of blood loss from her vagina but then the patient was not actively bleeding after that dark blood was obtained. Type and cross blood was requested. The patient underwent general endotracheal anesthesia without complication. The patient was prepped and draped sterilely with a vaginal and perineum prep. I placed a Hall catheter and obtained some dark urine that had a red tinge to it. The patient's perineum was examined and there was a left labia minora laceration and also a laceration superior to the urethra which I called a periurethral laceration. Both lacerations were bleeding minimally. I placed my right hand through the patient's vagina and through the patient's cervix. The patient had a fundal placenta documented by ultrasound. With placing my left hand on the anterior abdominal wall, I reached for the placenta with my right hand that was intrauterine. The patient's uterus was quite enlarged during the with her fundal height measuring 49 cm and the fundal placenta was quite high and initially out of reach with my right hand. I continued to palpate and was able to grasp some membranes and tissue and manually extracted it. I did this twice and then I placed my right hand through the patient's vagina and cervix into the fundus and then was able to grasp the remaining placenta and extract that manually. I then placed my right hand with gauze around my digits and then did this several times to try to remove any membranes or any other cotyledons associated with the placenta. Some membranes were removed but no more cotyledons could be palpated. I asked Dr. Charline Guerrero to actually palpate the intrauterine cavity since she had smaller hands the need to determine if she could palpate any cotyledons or any other membranes. She did so and did not think she could palpate any other cotyledons or membranes. I examined the intrauterine cavity 1 more time and did not obtain any membranes or cotyledons. The uterus was starting to clamp down and I asked anesthesia to administer Pitocin. Prior to the Pitocin, I had thought about using a curet but could not safely visualize the patient's cervix to place the curette through secondary to the patient's body habitus. I could palpate the cervix and place my fingers and hand through the cervix into the intrauterine cavity earlier but I did not think I could safely place the uterine curet. I had placed a weighted speculum posteriorly and a Powers retractor anteriorly but could still not visualize the cervix well enough secondary to the patient's body habitus and vaginal sidewalls collapsing. Therefore, the Pitocin was administered to allow the uterus to clamp down. I also administered Cytotec (950 g) rectally to help clamp down the uterus. The left labia minora laceration was repaired with 3-0 Vicryl suture in interrupted sutures. One suture caused more bleeding and I placed one more suture and then actually had to place a [id number] suture secondary to bleeding. There was good hemostasis then. Secondary to the bleeding and what I thought was a fairly small laceration, I asked anesthesia to draw a red top to ensure that her blood was clotting. Of note, it did clot within a couple minutes. I then repaired the periurethral laceration that was superior to the urethra. A Hall catheter was still in place and actually the Hall catheter will be left in place for a day or 2. 3-0 Vicryl suture with a small needle in an interrupted fashion was used to close this laceration. A rectal exam was then completed and there did not appear to be buttonhole lacerations. Cytotec-900 g was placed. I dropped one half tablet or 100 g. The patient was then awakened from her general endotracheal anesthesia. Sponge lap and needle counts were correct 2. The patient was brought to the PACU in stable condition. Plan: The patient will recover in the PACU and then in a room. I will most likely administer Lovenox 40 mg subcutaneous starting about 12 hours post op depending upon how the patient's bleeding is for DVT and PE prophylaxis secondary to her morbid obesity with her BMI greater than 50. I will continue ertapenem 1 g IV for a 2-3 doses I will check a CBC and a CMP in the morning. Blood has not been administered yet to the patient but vital signs will be observed closely. Blood will be administered if the patient is symptomatic or if the patient's vital signs dictate that the patient would need blood transfusion. Currently the patient's pulse is 104 and blood pressure is 137/74 with the patient in her room.
--- NOTE | 2018-07-31 22:25 | CRNA.PROGR ---
Anesthesia Time - Procedure/Recovery Time Start Date: 07/31/18 End Date: 07/31/18 Anesthesia : Time In: 21:01 Anesthesia : Time Out: 22:05 Anesthesia : Total Time: 64 - Total Anesthesia Time Total Anesthesia Time (minutes): 64 - Other Weight: 132.449 kg Height: 5 ft 7 in Body Mass Index (BMI): 45.7 Physical Status: P3 Anesthesia Type: General Anesthesia : ET
[2018-07-31] MEDS ORDERED: Lactated Ringers 1,000 ML PRIMARY IV SCH (22:30)
[2018-07-31] MEDS ORDERED: Ertapenem Inj 1 GM in Sodium Chloride 0.9% 100 ML IV SCH (23:00)
[2018-07-31] MEDS ORDERED: DIPH,PERTUSS,TET(ADACEL) VAC/PF 0.5 ML (Tdap) IM ONE (23:50)
[2018-07-31] MEDS ORDERED: GLYCERIN/WITCH HAZEL 1 BOX TOPICAL PRN (23:50)
[2018-07-31] MEDS ORDERED: diphenhydrAMINE 25 MG CAPSULE PO PRN (23:50)
[2018-07-31] MEDS ORDERED: BENZOCAINE/MENTHOL SPRAY 56 GM BOTTLE TOPICAL PRN (23:50)
[2018-07-31] MEDS ORDERED: Ondansetron ODT Tab 4 MG TAB PO PRN (23:50)
[2018-07-31] MEDS ORDERED: LANOLIN HPA 40 GM TUBE TOPICAL PRN (23:50)
[2018-08-01] MEDS: HYDROcodone-APAP 5 MG -325 MG TABLET PO PRN ×4 (01:14→19:59)
[2018-08-01] MEDS: Lactated Ringers-OB Dept 1,000 ML PRIMARY IV SCH (02:00)
[2018-08-01 04:07] LABS: ABG PCO2 31 MMHG (34-38); ABG PH 7.33 (7.35-7.45)
[2018-08-01 04:09] LABS: ABG BASE EXCESS -10 MMOL/L (-2-2)
[2018-08-01 05:18] LABS: Hematocrit [HCT] 29.6 % (37.0-47.0); Hemoglobin [HGB] 9.7 g/dL (12.0-16.0); MEAN CORPUSCULAR HGB CONC 32.8 g/dL (33-37); MEAN CORPUSCULAR VOLUME 88.6 FL (81-99); RED BLOOD COUNT 3.34 10^6/uL (4.20-5.40)
[2018-08-01 05:21] LABS: MEAN PLATELET VOLUME 13.1 FL (7.4-12.2)
[2018-08-01 05:24] LABS: BLOOD UREA NITROGEN 13 mg/dL (7-22); BUN/CREATININE RATIO 21.66 (6-20); SERUM ALBUMIN 2.4 g/dL (3.5-4.8); Uric Acid 6.2 mg/dl (2.5-7.0)
--- NOTE | 2018-08-01 08:08 | OB.PROGRES ---
Subjective Post Day: 1 Pain Management: PO Hall Catheter: Yes Lochia Color: Rubra/Red Small 10-25 ml Diet: Clear Liquids [place] Feeding Method: Exculsively Ambulating: No Concerns / Additional Information: The patient states that she slept well overnight and feels fairly well. She has some pain in her lower pelvis but nothing significant. The patient would like to get up but states that the nurse was waiting for me to see the patient this morning. Objective - General General Appearance: POSITIVE: No Acute Distress, Cooperative - Cardiovacular Cardiovascular Exam: POSITIVE: Tachycardia Edema: +1 Pedal Edema Extremities: Negative April's - Bilaterally - Respiratory Respiratory Exam: POSITIVE: Clear to Auscultation - Bilaterally, Breathing Non Labored - Abdomen Other Abdominal Exam Details: Abdomen is soft without guarding or rebound. Assesstment / Plan Assessment / Plan: Assessment/Plan: day #1 and postoperative day #1 status post spontaneous vaginal delivery with attempted delivery of the placenta with avulsion of the umbilical cord and then the patient brought to the operating room for manual extraction of the placenta under general endotracheal anesthesia and then repair of the periurethral laceration and left labia minora laceration. Also hemorrhage. The patient has a white count of 31,000 this morning with the patient presenting yesterday morning with a white count of 20,000. The patient does not appear septic although she is slightly tachycardic but afebrile. She may be tachycardic secondary to the hemorrhage even though her H&H is 9.7 and 29.6. The patient is not hypotensive. A CBC will be repeated later today and then in the morning. The patient had an epidural catheter continued overnight with the SELF PROPELLED MINING MACHINE OPERATOR. This was stopped in the middle of the night and the catheter will be removed first thing. The patient did have multiple attempts at the epidural yesterday morning secondary to difficulty in placing the epidural possibly secondary to the patient's body habitus with BMI greater than 50. The patient does not complain of a headache this morning. The patient's abdomen is soft without guarding or rebound. The patient and I did discuss the possibility of retained placenta or retained membranes secondary to the manual extraction of the placenta. I informed the patient that I would speak to the radiologist today to determine if there was a radiology study that couldn't determine between placenta and uterus this early from a vaginal delivery. The sponge lap and needle counts were correct 2 last night but I may want to get an x-ray just to ensure there is not retained lap sponges or Ray-Temo's. The patient's creatinine was 0.6 and the patient's liver function tests were normal this morning. Repeat will be tomorrow morning. The patient does have preeclampsia without signs or symptoms of severe preeclampsia by blood pressures will be observed especially once patient is up. Incentive spirometry will be ordered secondary to the general endotracheal anesthesia. The patient is not a smoker. She is recovering from a mild upper respiratory infection from last week. I may repeat a dose of ertapenem 24 hours out from the first dose. I will speak with our clinical rotoformer backtender. The patient will be continued to be observed very closely. I will have the patient dangle once she has epidural catheter removed and then ambulate if she is doing well. I may give the patient Lovenox 40 mg subcutaneous daily to help prevent DVT and PE. I would do this later this morning once I ensure that she is not bleeding. I discussed the entire delivery and operating room process last night with the patient this morning in detail. The patient expressed understanding. Please see my operative report.
[2018-08-01] MEDS: DOCUSATE 100 MG CAPSULE PO SCH (09:36)
[2018-08-01] MEDS: Prenatal Multivitamin Tab 1 TAB TAB PO SCH (09:36)
--- NOTE | 2018-08-01 12:38 | OB.PROGRES ---
Assesstment / Plan Assessment / Plan: The patient is not bleeding much. I will go ahead and start Lovenox 40 mg subcutaneous daily for DVT/PE prophylaxis. Not in the abdomen. I spoke with the pharmacist and I will give 1 dose of azithromycin 500 mg IV now secondary to the manual extraction of the placenta and the fact that the patient may have had a low-grade infection upon presentation to labor and delivery yesterday morning. I will give one more dose of ertapenem 1 g IV tonight at 2100 hrs. The patient has stood a couple different times and her right foot still has some numbness or tingling. She states that it feels like she is walking on bubbles. Her left leg and foot feel okay. I will speak with anesthesia about this. I may consult physical therapy. The patient has full range of motion and movement.
--- NOTE | 2018-08-01 12:52 | DI ---
XR ABDOMEN (KUB) FLAT 1VIEW,08/01/2018 12:26 PM: Clinical History: Evaluate for retained sponge. Previous Exam: None at this facility. Findings: 2 views of the pelvis are obtained, and demonstrate no evidence of foreign body. There are some air-f illed loops of colon without evidence of obstruction. Impression: No evidence of radiopaque foreign body.
[2018-08-01] MEDS: ENOXAPARIN SODIUM 40 MG/0.4 ML SYRINGE SUBCUT SCH (13:27)
--- NOTE | 2018-08-01 15:45 | CRNA.PROGR ---
Anesthesia Note - Progress Notes Anesthesia Progress Note: She is sitting up in bed holding her baby. Has been ambulatory ad erwin, though not up often per nursing staff. We discussed her anesthetic care with the epidural for GUILLERMO and her GETA for retained placenta. She has no questions regarding her care. She does state she has some "tingling" that feels like "walking on bubbles" bilaterally in her feet, worse on the right foot. On exam it appears it is all sciatic involvement as she has not changes from baseline at any areas innervated femorally. She does state that she has a history of sciatica and it was worse on the right. We discussed positioning and that it could be a residual effect of stirrups. Dr. Snyder is also aware of this. CBC and BMP 08/01/18 04:49 08/01/18 04:49 Vital Signs (24 hrs) Temp Pulse Pulse Resp BP BP Pulse Ox 08/01/18 13:39 97.9 F 95 18 115/56 96 08/01/18 08:56 97.9 F 109 H 20 131/78 97 08/01/18 03:00 114 H 20 128/77 97 08/01/18 00:15 99.2 F 102 H 20 129/75 95 08/01/18 00:00 105 H 20 148/88 97 07/31/18 23:45 117 H 22 150/92 98 07/31/18 23:30 104 H 22 126/100 93 07/31/18 23:15 95 22 137/75 94 07/31/18 23:00 102 H 20 137/74 94 07/31/18 22:45 99 20 139/70 99 07/31/18 22:26 113 H 22 143/74 97 07/31/18 22:22 110 H 24 134/78 99 07/31/18 22:16 110 H 22 140/72 99 07/31/18 22:10 113 H 24 138/84 97 07/31/18 22:05 107 H 24 139/90 97 07/31/18 22:00 98.5 F 135 H 26 H 137/85 95 07/31/18 19:30 101 H 121/51 100 07/31/18 19:00 71 103/57 100 07/31/18 18:44 110 H 22 103/47 94 07/31/18 18:30 74 117/44 95 07/31/18 17:45 99.2 F 101 H 20 152/69 96 07/31/18 17:35 99.2 F 07/31/18 17:00 83 117/61 07/31/18 16:00 99 18 97/65 96 07/31/18 15:59 96
[2018-08-01] MEDS: IBUPROFEN 800 MG TABLET PO PRN (19:53)
[2018-08-01] MEDS ORDERED: Ertapenem Inj 1 GM in Sodium Chloride 0.9% 100 ML IV SCH (21:00)
[2018-08-02 05:05] LABS: Hematocrit [HCT] 25.9 % (37.0-47.0); Hemoglobin [HGB] 8.2 g/dL (12.0-16.0); MEAN CORPUSCULAR HEMOGLOBIN 28.4 PG (27-31); MEAN CORPUSCULAR HGB CONC 31.7 g/dL (33-37); MEAN CORPUSCULAR VOLUME 89.6 FL (81-99); MEAN PLATELET VOLUME 12.5 FL (7.4-12.2); RED BLOOD COUNT 2.89 10^6/uL (4.20-5.40)
[2018-08-02 05:17] LABS: BLOOD UREA NITROGEN 17 mg/dL (7-22); BUN/CREATININE RATIO 24.28 (6-20); SERUM ALBUMIN 2.4 g/dL (3.5-4.8); Uric Acid 7.3 mg/dl (2.5-7.0)
[2018-08-02] MEDS: HYDROcodone-APAP 5 MG -325 MG TABLET PO PRN ×4 (05:37→20:09)
[2018-08-02] MEDS: IBUPROFEN 800 MG TABLET PO PRN ×3 (05:37→20:08)
[2018-08-02] MEDS: DOCUSATE 100 MG CAPSULE PO SCH ×3 (06:38→20:08)
--- NOTE | 2018-08-02 08:57 | OB.PROGRES ---
Subjective Post Day: 2 Pain Management: PO Hall Catheter: Yes Small 10-25 ml Diet: Regular [place] Feeding Method: Exculsively Ambulating: Yes Concerns / Additional Information: The patient is currently breast-feeding the baby and talking on the phone. The nurse states that the patient was up last evening. She did ambulate. This morning the patient was complaining of some abdominal cramping or pelvic cramping especially with breast-feeding. No fever or chills. Objective - General General Appearance: POSITIVE: No Acute Distress (I was not able to examine the patient since the patient was on the telephone and breast-feeding.), Cooperative Assesstment / Plan Assessment / Plan: Assessment: day #2 status post spontaneous vaginal delivery and then avulsion of umbilical cord at the placenta and then manual extraction of the placenta in the operating room under general endotracheal anesthesia. The patient's white count was 31,000 yesterday morning and this morning it was 17,000. The patient has been afebrile and pulse is less than 100 and blood pressures are normal or slightly elevated which is consistent with the patient's preeclampsia without signs or symptoms of severe preeclampsia. The patient's creatinine was 0.7 and liver function tests were normal. Platelets are normal. The patient has had improved urine output and 1200 mL overnight. The patient's urine has cleared significantly of darkened color over the past 30+ hours. The patient has received 2 doses of ertapenem since the manual extraction of the placenta on 07/31/2018 and 1 dose of azithromycin yesterday afternoon. The patient received her first dose of Lovenox 40 mg subcutaneous yesterday and will receive that daily for DVT/PE prophylaxis Physical therapy saw the patient yesterday secondary to the patient observing that when she ambulated it felt like she was walking on bubbles on her right foot. There were no blisters. Anesthesia evaluated the patient and did not think the epidural was the etiology. Physical therapy saw the patient and thought either secondary to some bilateral lower extremity edema or secondary to position with pushing and in the dorsal lithotomy position in the operating room for 1 hour that there may be some superficial nerve impingement in her ankles and feet with right greater than left. The patient has full motor. Physical therapy did some PT as well as kinesio-taping. Plan: Continue to observe Check labs in the morning to look at the white count as well as H&H and chemistries Observe the patient today with respect to temperature and blood pressure and pulse I have discussed with the patient that there may be some retained placenta or membranes necessitating a D&C at some time but currently the patient does not appear septic and has been afebrile. The patient should ambulate more today. Physical therapy will see the patient today I would like to discontinue the Hall but will talk with the patient first about this and examined for edema around the patient's urethra. Depending upon how the patient does, including vital signs, I may give one more dose of ertapenem or I may stop antibiotics.
[2018-08-02] MEDS ORDERED: MMR VACCINE 12500 UNIT/0.5 ML SUBCUT ONE (09:00)
[2018-08-02] MEDS: ENOXAPARIN SODIUM 40 MG/0.4 ML SYRINGE SUBCUT SCH (09:34)
[2018-08-02] MEDS: Prenatal Multivitamin Tab 1 TAB TAB PO SCH (09:35)
[2018-08-02] MEDS: ACETAMINOPHEN 325 MG TABLET PO PRN ×2 (10:40→15:36)
--- NOTE | 2018-08-02 11:36 | PTI REPORT ---
Thank you for the referral of Julissa Dominguez. She was seen on 08/01/18 for an inpatient evaluation status post epidural and having issues with her right foot. SUBJECTIVE: The patient is a 42-year-old female who had a difficult delivery with her daughter yesterday. Per Dr. Snyder, the patient was pushing for approximately one hour and did have to go in for emergency surgery and did undergo an epidural with multiple boluses. The patient is recovering well today. They have tried to get her up a few times to walk, but she states that every time she gets up and tries to walk, she feels like she has bubbles on her right greater than her left foot and feels very wobbly and has not been able to get up and walk much. The patient complains of some tingling from mcc down her lower extremity into her whole foot, mainly on the right side, but she is having a few symptoms on the left. The patient denies any back pain during her . PAST MEDICAL HISTORY: Past medical history can be found in the patient's medical record. OBJECTIVE FINDINGS: General observations: The patient was alert and oriented to setting upon PT arrival. Sensation: The patient's main complaint is of tingling, mainly on the right side from mcc down her lower extremity into her foot and feeling wobbly. Strength: The patient demonstrated appropriate motor control and strength of the left and right lower extremities. ASSESSMENT: The patient has good rehab potential. Problem List: Inability to ambulate secondary to complaints of feeling wobbly with sensory nerve symptoms on the right greater than the left lower extremity and foot region Physical Therapy Goals: To be met by discharge from inpatient: Patient will be able to ambulate without complaints of feeling wobbly or numbness/tingling into her lower extremity and foot. TREATMENT PLAN: Patient will be seen on a PRN basis until discharge. INITIAL TREATMENT: Treatment today consisted of the initial evaluation along with one unit of manual therapy and neuromuscular re-education. We did perform nerve glides on the right side along with general mobilization and stretching techniques for the right lower extremity. The therapist then applied Kinesio tape for support and stabilization to bilateral feet to help decrease the nerve symptoms that she is having. The therapist discussed the Kinesio tape with the nursing staff. If it increases any of her symptoms they were told to remove it. After the patient finishes her next feeding session with her daughter, she is going to get up and see if the tape and nerve glides had made any improvement in her symptoms. DAMIR
--- NOTE | 2018-08-02 13:07 | PT.PROG ---
Progress Note Progress Note: S. Patient states that she is feeling better today, she reports that the tape is helping. O. Patient ambulated 50 feet in the [place] and back to her room. then performed nerve glides x 3 minutes. A. Patient tolerated ambulation and nerve glides well, patient would benefit from therapy PRN. to improve functional mobility and safety. P. continue POC.
--- NOTE | 2018-08-02 15:06 | OB.PROGRES ---
Assesstment / Plan Assessment / Plan: day #2. I wrote a note earlier today but was not able to palpate the patient's abdomen since she was on the phone and breast-feeding. Patient states that she is feeling well. She has had a dull headache but often she gets a headache with weather changes. Patient's blood pressures are normal. It is possible that the patient's mild headache is secondary to her anemia of 8 and 25. Patient without lightheadedness with ambulating. Also, her feet and lower legs are feeling better. Physical therapy did see the patient. The patient did receive her Lovenox this morning. The patient's urine had cleared up but then the patient ambulated and it is slightly blood-tinged. Very light pink. Good urine output. Abdomen is soft, obese, no guarding or rebound. Extremities without Homans 2+ pitting edema bilaterally. Plan: Discontinue the Hall catheter Patient should ambulate several times. Currently, antibiotics are discontinued. Patient is afebrile and pulse is less than 100. Continue to observe blood pressures and pulse and temperature Gestational hypertension panel in the morning.
--- NOTE | 2018-08-02 17:12 | OB.PROGRES ---
Assesstment / Plan Assessment / Plan: The patient states her headache started to resolve but then returned. She is not lightheaded when she ambulates. Blood pressures are good. The headache may be secondary to her anemia. I suggested that she drink unsweetened Tea to determine if this might help her headache. Also we talked about a blood transfusion if the headache remains. I will start the patient on ferrous sulfate 325 mg twice a day to night. I will check labs in the morning. I encouraged the patient to ambulate. We did discuss blood transfusion for lightheadedness or other symptoms or if her blood count is significantly lower. It still may be equilibrating. The patient expressed understanding.
[2018-08-02] MEDS: FERROUS SULFATE 325 MG TABLET PO SCH (21:00)
[2018-08-03] MEDS ORDERED: ACETAMINOPHEN 325 MG TABLET PO PRN (01:07)
[2018-08-03 05:16] LABS: Hematocrit [HCT] 26.1 % (37.0-47.0); Hemoglobin [HGB] 8.4 g/dL (12.0-16.0); MEAN CORPUSCULAR HEMOGLOBIN 28.9 PG (27-31); MEAN CORPUSCULAR HGB CONC 32.2 g/dL (33-37); MEAN CORPUSCULAR VOLUME 89.7 FL (81-99); MEAN PLATELET VOLUME 11.4 FL (7.4-12.2); RED BLOOD COUNT 2.91 10^6/uL (4.20-5.40)
[2018-08-03 05:39] LABS: BLOOD UREA NITROGEN 16 mg/dL (7-22); BUN/CREATININE RATIO 26.66 (6-20); SERUM ALBUMIN 2.6 g/dL (3.5-4.8); Uric Acid 7.3 mg/dl (2.5-7.0)
[2018-08-03] MEDS: DOCUSATE 100 MG CAPSULE PO SCH ×2 (09:49→21:23)
[2018-08-03] MEDS: FERROUS SULFATE 325 MG TABLET PO SCH ×2 (09:49→21:23)
[2018-08-03] MEDS: ENOXAPARIN SODIUM 40 MG/0.4 ML SYRINGE SUBCUT SCH (09:49)
[2018-08-03] MEDS: Prenatal Multivitamin Tab 1 TAB TAB PO SCH (09:49)
[2018-08-03] MEDS: IBUPROFEN 800 MG TABLET PO PRN ×2 (09:49→21:12)
[2018-08-03] MEDS ORDERED: Sodium Chloride 0.9% 1,000 ML PRIMARY IV ONE ×2 (10:44)
[2018-08-03] MEDS ORDERED: ACETAMINOPHEN 500 MG TABLET PO PRN (11:01)
--- NOTE | 2018-08-03 13:53 | OB.PROGRES ---
Subjective Post Day: 3 Pain Management: PO Hall Catheter: No Flatus: Yes Lochia Color: Serosa/Brown Small 10-25 ml Diet: Regular [place] Feeding Method: Exculsively Ambulating: Yes Concerns / Additional Information: The patient states that she still has her headache. Today, the patient informed us that her headache improves somewhat when she lays down but when she is up it is worse. Other than her headache, the patient states that she is feeling well. Minimal abdominal cramping or pain. Objective - General General Appearance: POSITIVE: No Acute Distress, Cooperative - Cardiovacular Cardiovascular Exam: POSITIVE: RRR Edema: +1 Pedal Edema Extremities: Negative April's - Bilaterally - Respiratory Respiratory Exam: POSITIVE: Clear to Auscultation - Bilaterally - Fundus/Lochia/Perineum Other Exam Details: Abdomen soft without guarding or rebound Assesstment / Plan Assessment / Plan: Social: day #3 status post spontaneous vaginal delivery and then avulsion of umbilical cord and manual extraction of the placenta in the operating room. The patient's white count is still slightly elevated but significantly down from admission and postop. Patient's H&H is 8 and 26. The patient's AST was slightly elevated today at 55 and her ALT is normal. Platelets are normal. The patient continues to have a headache. I do not think it is related to preeclampsia. However, the headache may be related to a spinal headache since the patient did have several attempts at her epidural. And the patient informed me that her headache was slightly improved when she was laying down. Plan: Anesthesia has evaluated the patient and a blood patch may be recommended. I would like to keep the patient here one more day and check labs on her tomorrow since her liver function test elevated and to observe her headache. The patient is on iron twice a day and stool softeners Continue to observe the patient closely.
--- NOTE | 2018-08-03 15:48 | CRNA.PROCE ---
Central Neuraxis Block Placemt - - Type of Block: Epidural (blood patch) Reason for Block: Analgesia Moniters Used During Block: SPO2, NIBP Positioning: Sitting Skin Prep Used: ChloroPrep Draped: Yes Skin Infiltration - Enter Amount Used in Comment Field: 1% Xylocaine (mL): Yes ( skin wheal) Spinal Needle Used: 18 Hustead 80 mm Bioclusive Dressing Applied: No - - Additional Details: The previous location of epidural was identified, land dill palpated. usual touhy needle placement by angel GUZMAN. 20ml of autologous blood drawn from the patients left arm. THAT 20ML was then slowly injected into the epidural space. The patient reported immediate relief of the pain. Anesthesia Time - Other Weight: 132.449 kg Height: 5 ft 7 in Body Mass Index (BMI): 45.7
--- NOTE | 2018-08-03 15:49 | CRNA.PROGR ---
Anesthesia Time - Procedure/Recovery Time Start Date: 08/03/18 End Date: 08/03/18 Anesthesia : Time In: 13:30 Anesthesia : Time Out: 13:55 Anesthesia : Total Time: 25 - Total Anesthesia Time Total Anesthesia Time (minutes): 25 - Other Weight: 132.449 kg Height: 5 ft 7 in Body Mass Index (BMI): 45.7 Physical Status: P2 Anesthesia Type: Epidural (Blood Patch) Special Procedures: Epidural Blood Patch
--- NOTE | 2018-08-03 15:49 | OB.PROGRES ---
Assesstment / Plan Assessment / Plan: The patient's headache has resolved with the blood patch. The patient feels well. The pathology from the patient's placenta returned severe chorioamnionitis and funisitis. Also a velamentous cord insertion. The above findings would help explain the patient's white count of 20,000 on admission and the painful contractions initially as well as the fact that the baby is on antibiotics and doing better. Also, with the avulsion of the umbilical cord in the third stage of labor, the velamentous insertion would help explain that. I informed the patient.
[2018-08-04 05:35] VITALS: RESP 16; TEMP 98.4
--- NOTE | 2018-08-04 08:38 | CRNA.PROGR ---
Anesthesia Note - Progress Notes Anesthesia Progress Note: Blood patch F/U Pt is resting well this morning, she has been able to sit up and interact with her much more effectively since the blood patch. She is able to eat reg diet and has been able to ambulate and get up to the restroom as well. She denies any residual issues from the blood patch. Current VS are stable. Vital Signs - Last Taken Temperature 98.4 F 08/04/18 05:00 Pulse Rate 91 08/04/18 05:00 Respiratory Rate 16 08/04/18 05:00 Blood Pressure 123/67 08/04/18 05:00 Pulse Ox 97 08/04/18 05:00
--- NOTE | 2018-08-04 08:39 | OB.PROGRES ---
Subjective Post Day: 4 Pain Management: PO Hall Catheter: No Flatus: Yes Lochia Color: Serosa/Brown Scant < 10 ml Diet: Regular [place] Feeding Method: Exculsively Ambulating: Yes Concerns / Additional Information: The patient states that she is doing well. No headaches since her blood patch yesterday. No abdominal pain. The patient would like to go home. Objective - General General Appearance: POSITIVE: No Acute Distress, Cooperative - Cardiovacular Cardiovascular Exam: POSITIVE: RRR Edema: +1 Pedal Edema Extremities: Negative April's - Bilaterally - Respiratory Respiratory Exam: POSITIVE: Clear to Auscultation - Bilaterally - Abdomen Bowel Sounds: Present Other Abdominal Exam Details: Soft, nontender, no guarding or rebound - Fundus/Lochia/Perineum Uterus Consistency: Firm Assesstment / Plan Assessment / Plan: Assessment: day #4 status post spontaneous vaginal delivery and postop day #4 status post avulsion of umbilical cord and third stage of labor then manual extraction in the operating room general endotracheal anesthesia. The patient has been afebrile during this hospitalization. The patient's white count has decreased since day #11 it was 31,000. The patient has not been tachycardic. Blood pressures have been normal. Labs are pending for today. The patient had a headache on day 1 or 2 and it continued. Patient has a history of headaches. The patient explained yesterday that it was slightly better when she was supine. Therefore anesthesia saw the patient for possible spinal headache. Blood patch was completed and the patient has not had a headache since that time. The patient's placenta was sent to pathology secondary to the preeclampsia and manual extraction of placenta. Chorioamnionitis and funisitis as well as a velamentous cord insertion which explains why the umbilical cord avulsed so easily in the third stage of labor requiring a manual extraction of the placenta. This was not noted at the 20 week survey ultrasound which was a level II ultrasound with maternal- medicine. Plan: I would like to check the patient's labs today. The patient's liver function test was minimally elevated yesterday. If the labs are normal or are not significantly elevated, the patient will be discharged home with follow-up next week. I have discussed with the patient that if she has fever or increasing abdominal and pelvic pain, the patient may have retained products of conception and should be evaluated. I have explained to the patient that she may need a D&C for retained placenta. Again, the patient has remained afebrile and has very little abdominal or uterine discomfort with palpation. The patient will be discharged home on the following medications: Ibuprofen 800 mg 1 tablet by mouth 3 times a day for 5 days then 3 times a day as needed Ferrous sulfate 325 mg 1 tablet by mouth twice a day for 30 days and 1 refill Colace 100 mg capsule 1 capsule by mouth daily to twice a day when necessary constipation The patient should be on a multivitamin or folic acid daily Additionally, the patient may be discharged home but the patient's baby may stay secondary to needing antibiotics. The patient could room in. Patient expressed understanding. The previous plan with the patient earlier this week was for admission on 2017 for cervical ripening and induction of labor secondary to preeclampsia. The patient did present to labor and delivery a couple hours before expected arrival for admission via ambulance secondary to painful contractions. Patient changed her cervix from 1 cm to 2-3 cm to 5 cm over several hours but then did not change her cervix more. AROM with clear fluid that did not have a foul- smelling odor was noted. IUPC was placed later secondary to slow progression and then patient finally did deliver vaginally. After about 15 minutes, until traction on the umbilical cord resulted in cord avulsion and then attempted manual extraction and the delivery room but patient had significant pain. Therefore, the patient was brought to the operating room and underwent general endotracheal anesthesia, IV antibiotics with ertapenem 1 g IV and manual extraction of placenta and then repair of the patient's vaginal lacerations. The patient did receive 1 dose of IV azithromycin 500 mg the next day and then when he 4 hours after the first dose of ertapenem, the patient did receive a second dose of ertapenem 1 g IV. The patient has not received antibiotics after those dosages mentioned. The patient then had a continued headache and anesthesia evaluated the patient for a possible spinal headache and received a blood patch and the patient's headache resolved completely and is still resolved 18 hours post 1 patch. Patient is very pleased. Pending the results of the patient's labs, the patient will be discharged on day #4.
--- NOTE | 2018-08-04 08:49 | DCSUMMARY ---
Hospitalization Summary Admit Date: 07/31/18 Discharge Date: 08/04/18 Primary Diagnosis:: IUP 37 weeks, latent labor, preeclampsia Secondary Diagnosis:: Preeclampsia without signs or symptoms of severe preeclampsia Epidural Pitocin augmentation of labor Artificial rupture of membranes Spontaneous vaginal delivery Cord avulsion in third stage of labor Attempted manual extraction of placenta in the delivery room-not successful Manual extraction of placenta in the operating room under general endotracheal anesthesia Repair of vaginal lacerations status post a spontaneous vaginal delivery and manual extraction of the placenta in the operating room Persistent headache which was diagnosis spinal headache and resolved with a blood patch Chorioamnionitis via pathology report of placenta as well as funisitis Velamentous cord insertion by pathology report Primary Surgery and Date: 07/31/2018 Delivery Type: Vaginal Hospital Course: Assessment: day #4 status post spontaneous vaginal delivery and postop day #4 status post avulsion of umbilical cord and third stage of labor then manual extraction in the operating room general endotracheal anesthesia. The patient has been afebrile during this hospitalization. The patient's white count has decreased since day #11 it was 31,000. The patient has not been tachycardic. Blood pressures have been normal. Labs are pending for today. The patient had a headache on day 1 or 2 and it continued. Patient has a history of headaches. The patient explained yesterday that it was slightly better when she was supine. Therefore anesthesia saw the patient for possible spinal headache. Blood patch was completed and the patient has not had a headache since that time. The patient's placenta was sent to pathology secondary to the preeclampsia and manual extraction of placenta. Chorioamnionitis and funisitis as well as a velamentous cord insertion which explains why the umbilical cord avulsed so easily in the third stage of labor requiring a manual extraction of the placenta. This was not noted at the 20 week survey ultrasound which was a level II ultrasound with maternal- medicine. Plan: I would like to check the patient's labs today. The patient's liver function test was minimally elevated yesterday. If the labs are normal or are not significantly elevated, the patient will be discharged home with follow-up next week. I have discussed with the patient that if she has fever or increasing abdominal and pelvic pain, the patient may have retained products of conception and should be evaluated. I have explained to the patient that she may need a D&C for retained placenta. Again, the patient has remained afebrile and has very little abdominal or uterine discomfort with palpation. The patient will be discharged home on the following medications: Ibuprofen 800 mg 1 tablet by mouth 3 times a day for 5 days then 3 times a day as needed Ferrous sulfate 325 mg 1 tablet by mouth twice a day for 30 days and 1 refill Colace 100 mg capsule 1 capsule by mouth daily to twice a day when necessary constipation The patient should be on a multivitamin or folic acid daily Additionally, the patient may be discharged home but the patient's baby may stay secondary to needing antibiotics. The patient could room in. Patient expressed understanding. The previous plan with the patient earlier this week was for admission on 2017 for cervical ripening and induction of labor secondary to preeclampsia. The patient did present to labor and delivery a couple hours before expected arrival for admission via ambulance secondary to painful contractions. Patient changed her cervix from 1 cm to 2-3 cm to 5 cm over several hours but then did not change her cervix more. AROM with clear fluid that did not have a foul- smelling odor was noted. IUPC was placed later secondary to slow progression and then patient finally did deliver vaginally. After about 15 minutes, until traction on the umbilical cord resulted in cord avulsion and then attempted manual extraction and the delivery room but patient had significant pain. Therefore, the patient was brought to the operating room and underwent general endotracheal anesthesia, IV antibiotics with ertapenem 1 g IV and manual extraction of placenta and then repair of the patient's vaginal lacerations. The patient did receive 1 dose of IV azithromycin 500 mg the next day and then when he 4 hours after the first dose of ertapenem, the patient did receive a second dose of ertapenem 1 g IV. The patient has not received antibiotics after those dosages mentioned. The patient then had a continued headache and anesthesia evaluated the patient for a possible spinal headache and received a blood patch and the patient's headache resolved completely and is still resolved 18 hours post 1 patch. Patient is very pleased. Pending the results of the patient's labs, the patient will be discharged on day #4. / Postop Complications: Please see above Complications: Please see the pediatric notes. The baby was initially on bubble CPAP and then IV antibiotics. Exam - Vitals Vital Signs: Vital Signs Temperature 98.4 F Temperature Source Oral Pulse Rate [Apical] 100 Pulse Rate [Pulse Oximeter] 91 Pulse Rate 92 Respiratory Rate 16 Blood Pressure [Standing] 136/68 Blood Pressure [Sitting] 138/75 Blood Pressure [Lying] 131/62 Blood Pressure [Right Arm] 123/67 Blood Pressure 128/77 Pulse Ox 97 Oxygen Flow Rate 5 liters simple mask Oxygen Delivery Method Room Air Height 5 ft 7 in Weight 292 lb
[2018-08-04 08:56] LABS: Hematocrit [HCT] 28.3 % (37.0-47.0); Hemoglobin [HGB] 8.9 g/dL (12.0-16.0); MEAN CORPUSCULAR HEMOGLOBIN 28.4 PG (27-31); MEAN CORPUSCULAR HGB CONC 31.4 g/dL (33-37); MEAN CORPUSCULAR VOLUME 90.4 FL (81-99); MEAN PLATELET VOLUME 10.8 FL (7.4-12.2); RED BLOOD COUNT 3.13 10^6/uL (4.20-5.40)
[2018-08-04] MEDS: Prenatal Multivitamin Tab 1 TAB TAB PO SCH (09:10)
[2018-08-04] MEDS: ENOXAPARIN SODIUM 40 MG/0.4 ML SYRINGE SUBCUT SCH (09:11)
[2018-08-04] MEDS: DOCUSATE 100 MG CAPSULE PO SCH (09:11)
[2018-08-04] MEDS: FERROUS SULFATE 325 MG TABLET PO SCH (09:11)
[2018-08-04 09:12] LABS: BLOOD UREA NITROGEN 13 mg/dL (7-22); BUN/CREATININE RATIO 21.66 (6-20); Uric Acid 7.5 mg/dl (2.5-7.0)
[2018-08-04 14:03] VITALS: BP 122/64; O2SAT 94
== END 2018-08-04 17:10 | disposition home or self-care (01) | DRG 807 ==
LOC: OBIP 03:38
PROVIDERS: ADMIT Obstetrics & Gynecology; ATTEND Obstetrics & Gynecology

== ENCOUNTER 2018-08-06 16:10 | Inpatient (IN) ==
[2018-08-06] MEDS ORDERED: Ondansetron ODT Tab 4 MG TAB PO PRN (16:13)
[2018-08-06] MEDS ORDERED: diphenhydrAMINE 25 MG CAPSULE PO PRN (16:13)
[2018-08-06] MEDS ORDERED: ONDANSETRON 4 MG/2 ML VIAL IVP PRN (16:13)
[2018-08-06] MEDS ORDERED: GLYCERIN/WITCH HAZEL 1 BOX TOPICAL PRN (16:13)
[2018-08-06] MEDS ORDERED: BENZOCAINE/MENTHOL SPRAY 56 GM BOTTLE TOPICAL PRN (16:13)
[2018-08-06] MEDS ORDERED: CALCIUM CARBONATE 500 MG (TUMS) CHEWABLE TABLET PO PRN (16:13)
[2018-08-06] MEDS ORDERED: LANOLIN HPA 40 GM TUBE TOPICAL PRN (16:13)
[2018-08-06] MEDS ORDERED: IBUPROFEN 800 MG TABLET PO PRN (16:13)
--- NOTE | 2018-08-06 16:31 | OB.PROGRES ---
Subjective Post Day: 6 Pain Management: PO Hall Catheter: No Flatus: Yes Lochia Color: Serosa/Brown Scant < 10 ml Diet: Regular Feeding Method: Exculsively Ambulating: Yes Concerns / Additional Information: The patient is a 42-year-old status post spontaneous vaginal delivery on 07/31/2018 and then avulsion of umbilical cord and the third stage of labor with attempted manual extraction of the placenta in the delivery room but was unsuccessful and then the patient was brought to the operating room and underwent general endotracheal anesthesia and a manual extraction of her placenta and then repair of the vaginal lacerations from the spontaneous vaginal delivery. Of note, the patient presented in latent labor via ambulance early in the morning on 07/31/2018 but was to have an induction of labor for preeclampsia without signs or symptoms of severe preeclampsia on 07/31/2018 later in the morning with cervical ripening. The patient presented in latent labor with significant painful contractions. Epidural was completed. White count was found to be 20,000. AROM later did not show foul-smelling amniotic fluid. Patient progressed slowly with Pitocin augmentation to complete and then second stage of labor was 1 hour and then had spontaneous vaginal delivery with the manual extraction of the placenta after avulsion of the umbilical cord. The placenta was sent to pathology secondary to the preeclampsia and returned with chorioamnionitis, funisitis and velamentous cord insertion. This would explain the elevated white count and painful contractions that the patient had chorioamnionitis and the fact that the baby is still admitted on IV antibiotics although doing well. Patient did receive 2 doses of IV ertapenem 1 g IV and 1 dose of azithromycin 500 mg IV on day #1. Patient also received Lovenox 40 mg subcutaneous daily for DVT/PE prophylaxis until day of discharge secondary to the patient's BMI of 54. Patient had a persistent headache and was thought to have a spinal headache and a blood patch was completed and the patient's headache resolved almost instantaneously. The patient has not had a headache since that time. The patient was admitted until day #5 and postoperative day #5 from the manual extraction of placenta and was discharged home but the patient's AST was noted to 55 on day #4 and 5. ALT was normal. The patient was scheduled to have follow-up labs 2 days after discharge and blood pressure checks. The patient stated that she is doing well except for she did have some lower abdominal pain this morning that resolved when she started taking her ibuprofen again more regularly. The patient is also taking Colace and iron twice a day. The patient denies headache and has minimal vaginal bleeding. The patient's labs showed her AST to be 64 and ALT to be 54 the patient's LDH to be 827 and uric acid to be 7.5. H&H was 9.5 and 30 and platelets were normal or actually slightly elevated at 418,000. The patient's white count was 15.12. This is slightly elevated from day #4 when her white count was 13-1/2 and then on day #5 her white count was 14-1/2 thousand. The patient has been afebrile and does not complain of a fever today. The patient's initial blood pressure just when she sat down was 163/68 and follow-up blood pressures were 141/73 151/76 and 146/73. The patient denies right upper quadrant pain or headache. Past medical history significant for primary infertility, polycystic ovarian syndrome, morbid obesity with BMI of 54. No hypertension, no diabetes, no asthma. Past surgical history-no abdominal surgeries. No known drug allergies No tobacco alcohol or drugs Objective - General General Appearance: POSITIVE: No Acute Distress, Cooperative - Cardiovacular Cardiovascular Exam: POSITIVE: RRR Edema: +1 Pedal Edema Extremities: Negative April's - Bilaterally - Respiratory Respiratory Exam: POSITIVE: Clear to Auscultation - Bilaterally - Abdomen Bowel Sounds: Present Other Abdominal Exam Details: Abdomen is soft, no guarding or rebound. Reflexes 1+ bilaterally patellar. No clonus - Fundus/Lochia/Perineum Uterus Consistency: Firm (Nontender) Assesstment / Plan Assessment / Plan: Assessment: day #6 s/p a spontaneous vaginal delivery and post operative day #6 status post manual extraction of placenta and repair of vaginal lacerations with history of preeclampsia antepartum without signs or symptoms of severe preeclampsia. Today, the patient has mildly elevated liver function tests as well as elevated LDH and uric acid. Platelets are normal. Creatinine is normal. H&H is 9-1/2 and 30. Additionally, the patient's white count has increased slightly over the past couple days from 13.6 thousand to 15.2 thousand. The patient's blood pressures are elevated. The first blood pressure was severe range but that is when she just first sat down and did not rest. After sitting the patient's blood pressures continued to be mildly elevated but not severe range. As I mentioned in my notes and to the patient during the course, the patient may have retained placenta secondary to the manual extraction of the placenta. The most likely reason for the cord avulsion and manual extraction of placenta is the fact that the patient had a velamentous cord insertion of her placenta. If the patient does have retained placenta, this may account for the increasing liver function tests and increasing blood pressure as well as the increasing white count. The patient did receive ertapenem 2 doses and azithromycin 1 dose . Of note, I did speak with our maternal medicine consultants in [place], [place] about this patient. Plan: I would like to admit the patient to the hospital again. I would like to get a transvaginal ultrasound to look for retained placenta. If the ultrasound does show retained placenta, maternal medicine physician and myself discussed administering Cytotec to determine if this might help expel the retained placenta. If the Cytotec does not allow for expulsion of the retained placenta, then a D& C would be suggested. I would offer the patient Cytotec prior to the D&C since the patient does have an increased risk for uterine perforation secondary to being post for 1 week. Additionally, with the patient's morbid obesity, the patient has increased surgery risks. If the transvaginal ultrasound does not show retained placenta then I will speak with radiology tomorrow about getting an MRI of the patient's abdomen and pelvis to determine if the MRI can delineate retained placenta versus normal uterine tissue. If the MRI and ultrasound did not show retained placenta, I will follow the patient closely to determine the plan. I have discussed the above with the patient.
--- NOTE | 2018-08-06 18:48 | DI ---
EXAM: US Pelvis Complete, Transabdominal US Pelvis, Transvaginal CLINICAL HISTORY: ITS.REASON look for retained placenta post vag delivery Physician Notes: s/p manual extraction placenta. Tech Comments: TECHNIQUE: Real-time transabdominal and transvaginal pelvic ultrasound (complete) with image documentation. Transvaginal imaging was used for better evaluation of the endometrium and adnexa. COMPARISON: OB ultrasound on 07/15/2018 FINDINGS: Uterus: Enlarged, uterus measuring 16.1 x 8.6 x 12.2 cm. No focal myometrial lesion. Heterogeneous endometrium measures up to approximately 13.4 mm. Small amount of associated color Doppler flow within the endometrium. Right ovary: Not visualized on this exam. Left ovary: Not visualized on this exam. Other: No free fluid. No adnexal mass. IMPRESSION: Heterogeneous, mildly thickened endometrium measuring up to 13.4 mm in thickness. Mild associated color Doppler flow within the endometrium, concerning for retained products of conception. Ovaries are not visualized on this exam.
--- NOTE | 2018-08-06 18:54 | OB.PROGRES ---
Subjective Post Day: 6 Pain Management: PO Hall Catheter: No Flatus: No Lochia Color: Serosa/Brown Scant < 10 ml Diet: Clear Liquids [place] Feeding Method: Exculsively Ambulating: Yes Objective - General General Appearance: POSITIVE: No Acute Distress, Cooperative Assesstment / Plan Assessment / Plan: Please see my previous note. The patient had a transvaginal ultrasound and the rda inform me that she saw a 3 x 4 cm tissue like substance in the lower uterine segment that looked like placenta. Other than that the uterine lining looked good. The tissue did look different then the uterine lining and therefore it was thought that it was retained placenta after the manual extraction but it appeared as though it was dislodged and in the lower uterine segment. The placenta initially was fundal. I spoke with the patient and explained the ultrasound findings and I offered the patient Cytotec 200 g vaginally initially and then in 6-8 hours I would increase the dose to 800 g vaginally if the first dose did not allow for expelling the placental type tissue. I explained that if the patient tolerated the Cytotec I would even prescribe a third dose to determine if the patient's uterus would expel the 3 x 4 cm placenta tissue. If the Cytotec did not allow for expelling the tissue, then I would offer the patient a D&C. We did discuss the risk of infection, bleeding, uterine perforation, uterine scarring or synechiae and hemorrhage. Patient and I both thought that considering the risk factors that she has one week and with her BMI of 54 that it would be best to try a medical therapy instead of surgery especially since the placenta tissue appears to be dislodged from the placenta. I did explain that she could have some bleeding and pain and I will prescribe some hydrocodone/Tylenol for the cramping that she may have. The patient is taking ibuprofen 800 mg 3 times a day. The patient currently is on clear liquids and will be nothing by mouth after midnight in case I have to bring the patient to the operating room. The patient expressed understanding with the above plan. Addendum: I did not prescribe magnesium sulfate since the patient's initial blood pressure was elevated with a diastolic of 163 but the other blood pressures were in the 140s/70s to 151/70s. With her AST and ALT not above 70 and only 1 severe blood pressure and that was when she sat down and had her blood pressure taken immediately, I did not think that the patient needed magnesium sulfate. Upon admission, her first blood pressure was 155/88. Again, the patient is asymptomatic with regards to headache or right upper quadrant pain. I will have the patient's blood pressures followed and if she has a severe blood pressure reading, I would start magnesium sulfate for 24 hours. 6 g bolus and then 2 g per hour.
[2018-08-06] MEDS ORDERED: MISOPROSTOL 200 MCG TABLET VAGINAL ONE ×2 (19:00→19:06)
[2018-08-06] MEDS: Lactated Ringers 1,000 ML PRIMARY IV SCH (20:38)
[2018-08-06] MEDS: DOCUSATE 100 MG CAPSULE PO SCH (23:28)
[2018-08-07] MEDS: HYDROcodone-APAP 5 MG -325 MG TABLET PO PRN ×2 (01:34→09:21)
[2018-08-07] MEDS ORDERED: Misoprostol Tab 100 MCG TAB VAGINAL ONE ×2 (05:00→17:00)
[2018-08-07] MEDS: Lactated Ringers 1,000 ML PRIMARY IV SCH ×2 (05:06→16:56)
[2018-08-07 05:18] LABS: Hematocrit [HCT] 29.3 % (37.0-47.0); Hemoglobin [HGB] 9.3 g/dL (12.0-16.0); MEAN CORPUSCULAR HEMOGLOBIN 29.2 PG (27-31); MEAN CORPUSCULAR HGB CONC 31.7 g/dL (33-37); MEAN CORPUSCULAR VOLUME 92.1 FL (81-99); MEAN PLATELET VOLUME 10.5 FL (7.4-12.2); RED BLOOD COUNT 3.18 10^6/uL (4.20-5.40)
[2018-08-07 05:30] LABS: BLOOD UREA NITROGEN 13 mg/dL (7-22); BUN/CREATININE RATIO 21.66 (6-20); SERUM ALBUMIN 3.2 g/dL (3.5-4.8); Uric Acid 7.4 mg/dl (2.5-7.0)
--- NOTE | 2018-08-07 08:23 | DI ---
Comparison: Pelvic ultrasound 08/06/2018. Procedure: Routine transabdominal and endovaginal rogers scale and Doppler pelvic ultrasound. LMP: . Findings: The uterus measures 14.5 x 8.8 x 11.1 cm and demonstrates an anteverted orientation. The m orphology and echotexture of the uterus are normal. The endometrial thickness measures up to 13 mm a t the level of the lower uterine segment. The ovaries were not visualized. There is no adnexal mass w ithin the [id number]. No free cul-de-sac fluid was present. Impression: 1. There is heterogeneous thickening of the endometrial complex to 13 mm at the level of the lower ut erine segment. There is some internal flow within this thickening which raises concern for retained p roducts of conception. 2. The ovaries were not visualized. There is no adnexal mass.
[2018-08-07] MEDS ORDERED: MISOPROSTOL 200 MCG TABLET VAGINAL ONE (08:40)
--- NOTE | 2018-08-07 08:47 | OB.PROGRES ---
Subjective Post Day: 7 Hall Catheter: No Flatus: Yes Lochia Color: Serosa/Brown Small 10-25 ml Diet: Clear Liquids Feeding Method: Exculsively Ambulating: Yes Concerns / Additional Information: The patient had some cramping and bleeding overnight and passed a small amount of tissue. The patient states her cramping is better. No fever or chills. Objective - General General Appearance: POSITIVE: No Acute Distress, Cooperative - Cardiovacular Cardiovascular Exam: POSITIVE: RRR Edema: +1 Pedal Edema Extremities: Negative April's - Bilaterally - Respiratory Respiratory Exam: POSITIVE: Clear to Auscultation - Bilaterally - Abdomen Other Abdominal Exam Details: Guarding or rebound. Nontender. Assesstment / Plan Assessment / Plan: Assessment: day #7 and postoperative day #7 status post manual extraction of placenta. Patient with retained placenta or thought to be placenta 3 x 4 cm. Patient was given Cytotec last evening and did pass some tissue with some cramping and bleeding. Repeat ultrasound this morning shows tissue still present but smaller. I spoke with the radiologist and he thought that there was some retained placenta but it has changed position since last night and perhaps the patient's uterus is trying to expel the retained placenta. The patient's liver function tests are decreased and LDH is also decreased. A shows white blood cell count also decreased. The patient has been afebrile. The patient's blood pressures are in the mildly elevated range but no severe blood pressures. Plan: I would like to administer 800 g of Cytotec vaginally. I have discussed this with the patient. My goal is to have the patient's uterus expelled the thought to be retained placenta without taking the patient to the operating room. We have discussed the risk and benefits. I also informed the patient of her improved labs. I will place the patient on clear liquids. Close observation
[2018-08-07] MEDS: FERROUS SULFATE 325 MG TABLET PO SCH (09:11)
[2018-08-07] MEDS: Prenatal Multivitamin Tab 1 TAB TAB PO SCH (09:12)
[2018-08-07] MEDS: DOCUSATE 100 MG CAPSULE PO SCH ×2 (09:12→20:53)
--- NOTE | 2018-08-07 15:53 | OB.PROGRES ---
Subjective Post Day: 7 Concerns / Additional Information: The patient states that she had only minimal cramping and bleeding with the 800 g dose of Cytotec this morning. The patient has been in bed most of the time. The patient feels well but just was not sure if she had to stay in bed. No fever or chills. No abdominal pain. Assesstment / Plan Assessment / Plan: Assessment: day #7 and postoperative day #7 from vaginal delivery and manual extraction of placenta. Patient has a small 3 x 3 x 3 cm retained placenta in the lower uterine segment on ultrasound this morning. Patient's labs were improved. I would like to administer one more dose of Cytotec 800 g vaginally 8 hours after the last dose before I were to offer to bring the patient to the operating room and undergo general endotracheal anesthesia for a D&C. I will write for the Cytotec to be administered at 1900 hrs. Last dose was at 0911 hrs. this morning. I spoke with the patient about this and the patient understands that there are risks to the D&C and that if we can have her body expel the retained placenta with the assistance of the Cytotec, that would be best. Patient will also ambulate over the next hour just to see if that helps. If the patient does pass some tissue that I would not need to give her the next dose of Cytotec.
--- NOTE | 2018-08-07 17:18 | OB.PROGRES ---
Assesstment / Plan Assessment / Plan: I decided to go ahead and examine the patient with a speculum to determine if there is any tissue at the cervical OS. Or in the vaginal vault. The speculum was placed. There was no tissue visualized at the cervical OS or in the vagina. I did place the ring forceps gently inside the cervix about [address] cm[address] not [address] the ring forceps through the cervix into the lower uterine segment. I just wanted to gently visualize the cervical canal to determine if there was any tissue. There was not. The speculum was then removed. I then placed 8 100 g Cytotec tablets for a total of 800 g of Cytotec to determine if this would help expel the retained placenta that was at the lower uterine segment. I will also check a gestational hypertension panel in the morning again one more time. The patient's blood pressures have been in the mild range today.
[2018-08-08] MEDS: Lactated Ringers 1,000 ML PRIMARY IV SCH ×3 (00:44→16:33)
[2018-08-08 05:35] LABS: Hematocrit [HCT] 30.6 % (37.0-47.0); Hemoglobin [HGB] 9.5 g/dL (12.0-16.0); MEAN CORPUSCULAR HEMOGLOBIN 28.4 PG (27-31); MEAN CORPUSCULAR VOLUME 91.6 FL (81-99); MEAN PLATELET VOLUME 10.3 FL (7.4-12.2); RED BLOOD COUNT 3.34 10^6/uL (4.20-5.40)
[2018-08-08 05:57] LABS: BLOOD UREA NITROGEN 9 mg/dL (7-22); BUN/CREATININE RATIO 12.85 (6-20); SERUM ALBUMIN 3.2 g/dL (3.5-4.8); Uric Acid 8.5 mg/dl (2.5-7.0)
--- NOTE | 2018-08-08 08:21 | OB.PROGRES ---
Subjective Post Day: 8 Pain Management: PO Hall Catheter: No Flatus: Yes Lochia Color: Rubra/Red Scant < 10 ml Diet: NPO [place] Feeding Method: / Bottle Ambulating: Yes Concerns / Additional Information: The patient states that she did have some cramping overnight but not as severe as the night before. She passed a small amount of tissue. The patient does not have abdominal pain. She feels well. Objective - General General Appearance: POSITIVE: No Acute Distress - Cardiovacular Cardiovascular Exam: POSITIVE: Tachycardia (Heart rate just around 100. That is with the patient up.) Edema: +1 Pedal Edema Extremities: Negative April's - Bilaterally - Respiratory Respiratory Exam: POSITIVE: Clear to Auscultation - Bilaterally Other Respiratory Exam Details: No tachypnea - Abdomen Other Abdominal Exam Details: Abdomen-no guarding or rebound. Nontender. Assesstment / Plan Assessment / Plan: Assessment: day #8 and postop day #8 from manual extraction of placenta after umbilical cord avulsion. The patient states she is feeling well and passed a small amount of questionable tissue overnight with the third dose of Cytotec. The patient is afebrile. The patient's pulse is around 100. White count is decreased. Liver functions both read as normal today. H&H 9.5 and 30.6 The patient has morbid obesity and is at a higher risk for a D&C secondary to the morbid obesity, sleep apnea, increased risk for uterine perforation and the difficulty with surgery secondary to the patient's morbid obesity. Plan: Secondary to the increased risks of surgery, I have prescribed and the patient has had administered 3 different doses of Cytotec to see if the patient' s uterus would expel the retained placenta that is visualized on ultrasound. I would like to get another ultrasound this morning to determine if it appears as though the patient passed the tissue. If the thought to be retained placenta is still in the lower uterine segment, I will offer to bring the patient to the operating room for a D&C and exam under anesthesia. The patient expressed understanding with this plan. I have spoken with the encyclopedia research worker and I will order the ultrasound.
[2018-08-08] MEDS: Prenatal Multivitamin Tab 1 TAB TAB PO SCH (09:27)
[2018-08-08] MEDS: DOCUSATE 100 MG CAPSULE PO SCH (09:27)
[2018-08-08] MEDS: FERROUS SULFATE 325 MG TABLET PO SCH (09:27)
--- NOTE | 2018-08-08 10:24 | DI ---
US Pelvic Transvaginal 08/08/2018 8:22 AM History: eval retained placenta s/p man extrac placenta look for ret placenta Comparison: Pelvic ultrasound 08/07/2018, 08/06/2018. Procedure: Routine endovaginal rogers scale and Doppler pelvic ultrasound. LMP: . Findings: The uterus measures 13.5 x 8.8 x 10.1 cm and demonstrates an anteverted orientation. The m orphology and echotexture of the uterus are normal. There is a heterogeneously echogenic area of thi ckening of the endometrial complex in the lower uterine segment measuring 3.8 x 2.1 x 2.9 cm (previou sly 3.2 x 2.6 x 2.4 cm). This area demonstrates minimal peripheral vascularity. The remaining endomet rial complex is homogeneous with a thickness of 13 mm. The ovaries were not evaluated. No free cul-de -sac fluid was present. Impression: 1. There is heterogeneous thickening with peripheral vascularity in the lower uterine segment endomet rial complex. This raises concern for retained products of conception. The area is stable to slightly larger than the prior exam given differences in technique.
[2018-08-08] MEDS ORDERED: CefOXitin Inj 2 GM in Sodium Chloride 0.9% 100 ML IV ONE (10:42)
--- NOTE | 2018-08-08 10:42 | OB.PROGRES ---
Assesstment / Plan Assessment / Plan: The patient had a transvaginal ultrasound of her uterus showing a 3.8 x 3 cm retained placenta in the lower uterine segment. The endometrial lining near the fundus was 1.3 cm thick which is normal . It appears as though the retained placenta is in the lower uterine segment and the placenta initially was fundal during the patient's . The patient has been administered 3 different doses of Cytotec and has not expelled this retained placenta. The patient's labs are improved but I have spoken with the patient and this retained placenta should be removed. I discussed a D&C with the patient in detail. The patient's cervix is most likely dilated already. Hopefully, I can remove this 3.8 cm area from the lower uterine segment and not have to curet the rest of the uterus since it appears to be normal thickness and there does not appear to be any other retained placenta according to the radiologist. I have consented the patient for a D&C and exam under anesthesia. The risk of infection, bleeding, pain, uterine perforation, damage to bowel, bladder, nerve , vessel, risk of anesthesia, blood clots to the legs or lungs, the need for more surgery secondary to retained placenta and the low risk of were discussed with the patient. Consent form was signed. The patient expressed understanding with the current plan. Mefoxin 2 g IV will be given preoperatively workplace rehabilitation officer to the operating room.
[2018-08-08] MEDS ORDERED: PROPOFOL 10 MG/1 ML (200 MG/20 ML) VIAL IV ONE (14:17)
[2018-08-08] MEDS ORDERED: LIDOCAINE MPF 2% - 5 ML (20 MG/1 ML) ONE (14:19)
[2018-08-08] MEDS ORDERED: MIDAZOLAM 5 MG/1 ML ONE (14:19)
[2018-08-08] MEDS ORDERED: fentaNYL Inj 250 MCG/5 ML VIAL ONE (14:19)
[2018-08-08] MEDS ORDERED: Oxytocin 20 Units + LR 20 UNIT/1,000 ML BAG IV ONE (15:05)
--- NOTE | 2018-08-08 15:06 | OB.OP.NOTE ---
Operative Report Surgeon: Claudio Anesthesia Type: General Anesthesia Provider: Chuck Kamara CRNA Surgery Date: 08/08/18 Preoperative Diagnosis: Preeclampsia without signs or symptoms of severe preeclampsia. Active labor. Pitocin augmentation. Status post spontaneous vaginal delivery. Avulsion of umbilical cord during third stage of labor. Manual extraction of placenta with general endotracheal anesthesia on day of delivery. On day #6 elevated liver function tests and elevated blood pressure- preeclampsia. Retained placenta. Status post trial of medical therapy for expulsion of retained placenta-unsuccessful. Recommended D&C for retained placenta Postoperative Diagnosis: Same Procedure: Exam under anesthesia. Curettage of endometrial lining Estimated Blood Loss (mL): 10 Fluids: 250 mL of LR in the operating room. Mefoxin 2 g IV before surgery. 200 mL of urine drained prior to the surgery via straight catheter Complications: None apparent No evidence of uterine perforation Findings at Surgery: Patient's cervix was dilated Placenta tissue and placenta membranes obtained with curettage At the completion of the procedure a good Crigh in all 4 quadrants of the endometrium with the curette Indications for the Procedure: The patient is a 42-year-old G1 now P1 status post presentation of active labor at 37 weeks with preeclampsia without signs or symptoms of severe preeclampsia. After AROM with clear fluid and IUPC and Pitocin augmentation the patient had a spontaneous vaginal delivery. In the third stage of labor the umbilical cord avulsed from the placenta. Manual extraction of the placenta in the operating room. On post day #4 the patient's AST was noted to be 55 2 days in a row. Patient was doing well and discharged home with normal blood pressures. The plan was to repeat a gestational hypertension panel in 2 days. The labs were repeated and the patient's AST and ALT were elevated. LDH was elevated and the patient's blood pressures were noted to be in the mild range which was a change. Ultrasound was completed and retained placenta of about 4 x 3 cm in dimensions was noted in the lower uterine segment. Medical therapy with Cytotec 3 different doses was trialed but patient did not pass tissue completely. Therefore patient and I talked and a D&C was suggested. The risks , benefits, alternatives and indications were discussed with the patient and the consent form was signed. Preeclampsia without signs or symptoms of severe preeclampsia Active labor Pitocin augmentation Status post spontaneous vaginal delivery Avulsion of umbilical cord during third stage of labor Manual extraction of placenta with general endotracheal anesthesia on day of delivery On day #6 elevated liver function tests and elevated blood pressure- preeclampsia Retained placenta Status post trial of medical therapy for expulsion of retained placenta- unsuccessful Recommended D&C for retained placenta Description of Procedure: The patient was brought to the operating room after the consent had been signed after the risks, benefits, alternatives and indication of the procedure was discussed with the patient. The patient underwent general endotracheal anesthesia. SCDs were in place prior to that. The patient was placed in the dorsal lithotomy position in the [facility] an acute care hospital. The patient was prepped and draped sterilely. The bladder was drained of about 200 mL of clear yellow urine with a straight catheter. A weighted speculum was placed in the posterior vagina and then a Opwers retractor was placed anteriorly. The cervix was visualized and a single-tooth tenaculum was used to grasp the anterior lip of the cervix. The uterus was then sounded with the uterine sound to about 12 cm. There was no evidence of uterine perforation. I then placed a curet through the dilated cervix and curetted the lining of the uterus. I obtained a fair amount of placenta membranes and some other tissue. There was not one large 3 x 4 cm section of placenta but with several gentle curettings with no evidence of uterine perforation a fair amount of placental membranes and tissue was obtained. This was sent off to pathology. There was a good crigh in all 4 quadrants at the completion of the procedure there was normal tissue obtained with the last curetting. I Did not want to continue curetting secondary to the possibility of uterine scarring and synechiae since the patient was and also the possibility of uterine perforation. There was a good crigh in all 4 quadrants and tissue was not obtained as it was at the beginning of the procedure. The procedure was completed. It was estimated that the membranes and the other tissue could have total about a 3 x 4 cm area of tissue that was visualized on the transvaginal ultrasound. There was no bleeding from the uterus at the completion of the procedure. The single-tooth tenaculum was removed and there was good hemostasis at the tenaculum site after 30 seconds of pressure with a sponge stick. Again, the patient was hemostatic with no bleeding and no evidence of uterine perforation. I examined the the laceration sites with repair that occurred at the time of spontaneous vaginal delivery. The sites were intact. Sponge and lap counts were correct 2. The patient was awakened from her general endotracheal anesthesia without complication. Patient was brought to the PACU in stable condition. Pitocin with 20 units of Pitocin in 1 L of LR would be run at 125 mL/h. Plan: The patient will recover in the PACU and then be brought to the medical surgical unit for observation.
[2018-08-08] MEDS ORDERED: HYDROmorphone 2 MG/1 ML IVP PRN (15:13)
[2018-08-08] MEDS ORDERED: LIDOCAINE W/ SODIUM BICARB 0.5 ML SYR SUBD PRN (15:13)
--- NOTE | 2018-08-08 15:13 | CRNA.PROGR ---
Anesthesia Recovery Phase I - Post Anesthesia Evaluation Pain Level: 2
--- NOTE | 2018-08-08 15:13 | CRNA.PROGR ---
Anesthesia Time - Procedure/Recovery Time Start Date: 08/08/18 End Date: 08/08/18 Anesthesia : Time In: 14:24 Anesthesia : Time Out: 15:10 Anesthesia : Total Time: 46 - Total Anesthesia Time Total Anesthesia Time (minutes): 46 - Other Weight: 121.563 kg Height: 5 ft 7 in Body Mass Index (BMI): 42.0 Physical Status: P3 Anesthesia Type: General Anesthesia : ET
[2018-08-08] MEDS ORDERED: Oxytocin 20 Units + LR 20 UNIT/1,000 ML BAG IV SCH (15:30)
[2018-08-08] MEDS ORDERED: BENZOCAINE/MENTHOL SPRAY 56 GM BOTTLE TOPICAL PRN (15:30)
[2018-08-08] MEDS ORDERED: LANOLIN HPA 40 GM TUBE TOPICAL PRN (15:30)
[2018-08-08] MEDS ORDERED: diphenhydrAMINE 25 MG CAPSULE PO PRN (15:30)
[2018-08-08] MEDS ORDERED: Ondansetron ODT Tab 4 MG TAB PO PRN (15:30)
[2018-08-08] MEDS ORDERED: HYDROcodone-APAP 5 MG -325 MG TABLET PO PRN (15:30)
[2018-08-08] MEDS ORDERED: CALCIUM CARBONATE 500 MG (TUMS) CHEWABLE TABLET PO PRN (15:30)
[2018-08-08] MEDS ORDERED: ONDANSETRON 4 MG/2 ML VIAL IVP PRN (15:30)
[2018-08-08] MEDS ORDERED: GLYCERIN/WITCH HAZEL 1 BOX TOPICAL PRN (15:30)
[2018-08-08] MEDS: IBUPROFEN 800 MG TABLET PO PRN (17:13)
--- NOTE | 2018-08-08 17:44 | PDOC(PROG) ---
Subjective Post Op Day: 0 Pain Management: PO Hall Catheter: No Diet: Regular Concerns / Additional Information: The patient states that she feels well status post her D&C this afternoon. She was hungry and is currently eating regular diet. No abdominal pain that is significant. Bleeding is minimal. Assesstment / Plan Assessment / Plan: Postoperative day #0 status post D&C for retained placenta and membranes. Patient doing well. Blood pressures are mildly elevated. I may want to start the patient on an antihypertensive. The patient lives 40 minutes from here and there is not a hospital where she lives. Plan: I will continue to observe the patient overnight and observe her blood pressures. I may start her on nifedipine XL 30 mg if her blood pressures continue to be elevated for hypertension. I will also check labs in the morning and then if the patient is doing well, the patient will be discharged home tomorrow
[2018-08-09 02:08] VITALS: RESP 20
[2018-08-09] MEDS: Lactated Ringers 1,000 ML PRIMARY IV SCH (03:57)
[2018-08-09] MEDS: DOCUSATE 100 MG CAPSULE PO SCH ×2 (03:59→08:42)
[2018-08-09 04:38] LABS: BASOPHILS # (AUTO) 0.02 10*3/UL; BASOPHILS % (AUTO) 0.2 % (0-1); EOSINOPHILS # (AUTO) 0.29 10*3/UL; EOSINOPHILS % (AUTO) 2.9 % (0-8); Hematocrit [HCT] 32.5 % (37.0-47.0); Hemoglobin [HGB] 10.2 g/dL (12.0-16.0); LYMPHOCYTES # (AUTO) 1.78 10*3/uL; MEAN CORPUSCULAR HEMOGLOBIN 28.9 PG (27-31); MEAN CORPUSCULAR HGB CONC 31.4 g/dL (33-37); MEAN CORPUSCULAR VOLUME 92.1 FL (81-99); MEAN PLATELET VOLUME 10.1 FL (7.4-12.2); MONOCYTES # (AUTO) 0.57 10*3/UL (0.3-0.8); MONOCYTES % (AUTO) 5.8 % (5-15); NEUTROPHILS # (AUTO) 7.05 10*3/UL; NEUTROPHILS % (AUTO) 71.5 % (50-80); RED BLOOD COUNT 3.53 10^6/uL (4.20-5.40)
[2018-08-09 04:44] LABS: PLATELET MORPHOLOGY COMMENT NORMAL MORPHOLOGY (NORM); RBC MORPHOLOGY COMMENT NORMAL MORPHOLOGY (NORM); WBC MORPHOLOGY COMMENT NORMAL MORPHOLOGY (NORM)
[2018-08-09 05:08] LABS: BLOOD UREA NITROGEN 13 mg/dL (7-22); BUN/CREATININE RATIO 18.57 (6-20); SERUM ALBUMIN 3.6 g/dL (3.5-4.8)
[2018-08-09] MEDS: IBUPROFEN 800 MG TABLET PO PRN (07:16)
--- NOTE | 2018-08-09 08:24 | PDOC(PROG) ---
Subjective Post Op Day: 1 Pain Management: PO Hall Catheter: No Flatus: Yes Diet: Regular Ambulating: Yes Concerns / Additional Information: The patient states that she is doing well. No abdominal pain and no significant vaginal bleeding. Patient would like to go home. Patient will have good support at home. Objective - General General Appearance: POSITIVE: No Acute Distress, Cooperative - Cardiovacular Cardiovascular Exam: POSITIVE: RRR Edema: +1 Pedal Edema - Respiratory Respiratory Exam: POSITIVE: Clear to Auscultation - Bilaterally - Abdomen Bowel Sounds: Present Other Abdominal Exam Details: Abdomen soft, nontender, no guarding or rebound Assesstment / Plan Assessment / Plan: Assessment: Postoperative day #1 status post D&C for retained placenta and membranes. The patient's labs are improved today and are normal. H&H is 10 and 32. Liver function tests are normal. Patient has been afebrile. The patient has had a few mild blood pressures but otherwise normal. Plan: I would like to discharge the patient to home today The patient should get a blood pressure check tomorrow at the [place], [place] clinic of [facility] and then they should call my nurse with the blood pressure results. This same can be done on Tuesday. Currently, I will not prescribe Nifedipine XL 30 mg. However, I will have a low threshold to do so. The patient should resume her medications at discharge except: Ferrous sulfate 325 mg 1 tablet by mouth daily instead of twice a day. Her H&H is 10 and 32 so I decreased the frequency from twice a day to once a day. The patient does have the iron tablets. The patient should schedule a follow-up appointment with me for next week in my office. The patient should also schedule a 6 week appointment. The patient should be given the usual precautions to return for fever or increasing abdominal pain. The patient and her family should be on the look out for symptoms or signs of depression. Currently, the patient is doing well a depression can occur.
--- NOTE | 2018-08-09 08:33 | DCSUMMARY ---
Hospitalization Summary Admit Date: 08/06/18 Discharge Date: 08/09/18 Primary Diagnosis:: preeclampsia Secondary Diagnosis:: Retained placenta Elevated liver function tests Improvement of liver function tests Medical therapy for retained placenta Continued retained placenta D&C Primary Surgery and Date: 08/08/2018. Exam under anesthesia and D&C in the operating room under general endotracheal anesthesia Hospital Course: The patient is a 42-year-old G1 now P1 status post presentation of active labor at 37 weeks with preeclampsia without signs or symptoms of severe preeclampsia. After AROM with clear fluid and IUPC and Pitocin augmentation the patient had a spontaneous vaginal delivery. In the third stage of labor the umbilical cord avulsed from the placenta. Manual extraction of the placenta in the operating room. On post day #4 the patient's AST was noted to be 55 2 days in a row. Patient was doing well and discharged home with normal blood pressures. The plan was to repeat a gestational hypertension panel in 2 days. The labs were repeated and the patient's AST and ALT were elevated. LDH was elevated and the patient's blood pressures were noted to be in the mild range which was a change. Ultrasound was completed and retained placenta of about 4 x 3 cm in dimensions was noted in the lower uterine segment. Medical therapy with Cytotec 3 different doses was trialed but patient did not pass tissue completely. Therefore patient and I talked and a D&C was suggested. The risks , benefits, alternatives and indications were discussed with the patient and the consent form was signed. Recent history: Preeclampsia without signs or symptoms of severe preeclampsia at 37 weeks gestation Active labor Pitocin augmentation Status post spontaneous vaginal delivery Avulsion of umbilical cord during third stage of labor Manual extraction of placenta with general endotracheal anesthesia on day of delivery On day #6 elevated liver function tests and elevated blood pressure- preeclampsia Retained placenta Status post trial of medical therapy for expulsion of retained placenta- unsuccessful Recommended D&C for retained placenta D&C was completed and placental membranes and some tissue was obtained. This was sent to pathology. On postoperative day #1 which was 08/09/2018 patient was doing well. Occasionally mild elevated blood pressures but otherwise blood pressures normal. The patient was not sent home on an antihypertensive but we'll follow-up with blood pressure checks tomorrow and the next day. The patient's liver function tests and CBC were normal except for mild anemia with an H&H of 10 and 32. Exam - Vitals Vital Signs: Vital Signs Temperature 97.3 F Temperature Source Temporal Artery Scan Pulse Rate [Apical] 90 Pulse Rate [Radial] 98 Pulse Rate [Pulse Oximeter] 95 Pulse Rate 80 Respiratory Rate 20 Blood Pressure [Right Arm] 143/88 Blood Pressure [Left Arm] 158/92 Blood Pressure 129/86 Pulse Ox 91 Oxygen Flow Rate 3 Oxygen Delivery Method Room Air Height 5 ft 7 in Weight 268 lb
[2018-08-09] MEDS ORDERED: Prenatal Multivitamin Tab 1 TAB TAB PO SCH (09:00)
[2018-08-09] MEDS ORDERED: FERROUS SULFATE 325 MG TABLET PO SCH (09:00)
[2018-08-09 09:01] VITALS: BP 154/93; TEMP 97.8; O2SAT 95
== END 2018-08-09 09:47 | disposition home or self-care (01) | DRG 769 ==
LOC: MED/SURG 17:22
PROVIDERS: ADMIT Obstetrics & Gynecology; ATTEND Obstetrics & Gynecology